=== PATIENT | male | born 1955 | race Caucasian/White ===

== ENCOUNTER 2021-08-02 10:04 | Observation (INO) | payer MEDICARE, BC ==
[2021-08-02 10:29] LABS: Glucose,Whole Blood 118 mg/dL (75-99)
[2021-08-02] MEDS ORDERED: SODIUM CHLORIDE 0.9% 500 ML 500 ML IV STA (10:41)
--- NOTE | 2021-08-02 10:43 | ED ---
General Adult HPI - General Chief complaint: Syncope Stated complaint: syncope, head injury Time Seen by Provider: 08/02/21 10:11 Source: patient, family, RN notes reviewed Mode of arrival: ambulatory Limitations: no limitations - History of Present Illness Initial comments: Patient is a pleasant 66-year-old male presenting to the emergency department w ith syncopal episode. Patient was sitting taken his coffee when he felt a little bit lightheaded and suddenly passed out. Patient was partially caught by family however did reportedly strike the back of his head. Patient complains of minimal discomfort in that area. At this time patient has minimal nausea and minimal lightheadedness, no other complaints. No chest pain or dyspnea. No back or abdominal pain. No neck pain. No confusion or speech problems or weakness. Patient does have history of syncopal episode approximately 25 years ago. Patient was evaluated at that time without any conclusion for the cause. - Related Data Home Medications Medication Instructions Recorded Confirmed Finasteride [Proscar] 5 mg PO DAILY 08/02/21 08/02/21 Fluticasone Nasal [place] [Flonase 1 spray EA NOSTRIL DAILY 08/02/21 08/02/21 Nasal [place]] Losartan Potassium 100 mg PO DAILY 08/02/21 08/02/21 Multivitamins, Thera [Multivitamin 1 tab PO DAILY 08/02/21 08/02/21 (formulary)] guaiFENesin [Mucinex] 600 mg PO DAILY 08/02/21 08/02/21 Allergies Allergy/AdvReac Type Severity Reaction Status Date / Time clarithromycin [From Biaxin] AdvReac Nausea & Verified 08/02/21 11:37 Vomiting Review of Systems ROS Statement: Those systems with pertinent positive or pertinent negative responses have been documented in the HPI. ROS Other: All systems not noted in ROS Statement are negative. Constitutional: Denies: fever Eyes: Denies: eye pain ENT: Denies: ear pain Respiratory: Denies: cough Cardiovascular: Denies: chest pain Endocrine: Denies: fatigue Gastrointestinal: Denies: abdominal pain Genitourinary: Denies: dysuria Musculoskeletal: Denies: back pain Skin: Denies: rash Neurological: Reports: as per HPI. Denies: weakness, confusion Past Medical History Past Medical History: Hypertension Additional Past Medical History / Comment(s): MRSA Left arm 2013 status post I&D 3 in the outpatient setting, MRSA neck 2010 with I&D at Dr. Epperson's office. History of Any Multi-Drug Resistant Organisms: MRSA Date of last positivie culture/infection: 04/18/2014 MDRO Source:: Left Elbow and Left Arm Past Surgical History: No Surgical Hx Reported Additional Past Surgical History / Comment(s): Repair of 3 metatarsal fractures in his foot many years ago. I&D of the neck abscess, I&D and aspiration of the left elbow abscess Past Anesthesia/Blood Transfusion Reactions: No Reported Reaction Past Psychological History: No Psychological Hx Reported Smoking Status: Never smoker Past Alcohol Use History: Occasional Past Drug Use History: None Reported - Past Family History Mother Family Medical History: Osteoarthritis (OA) General Exam Limitations: no limitations General appearance: alert, in no apparent distress Head exam: Present: other (Minimal tenderness posterior scalp) Eye exam: Present: normal appearance, PERRL, EOMI. Absent: nystagmus ENT exam: Present: normal oropharynx Neck exam: Present: normal inspection. Absent: tenderness Respiratory exam: Present: normal lung sounds bilaterally Cardiovascular Exam: Present: regular rate, normal rhythm Expanded Peripheral pulses: 2+: Radial (R), Radial (L), Posterior Tibialis (R), Posterior Tibialis (L) GI/Abdominal exam: Present: soft. Absent: tenderness Extremities exam: Present: normal inspection, full ROM. Absent: tenderness, pedal edema, calf tenderness Neurological exam: Present: alert, oriented X3, CN II-XII intact. Absent: motor sensory deficit Expanded Neurological exam: Present: protecting the airway Speech: Present: fluid speech Cranial nerves: EOM's Intact: Normal Sensory exam: Upper Extremity Light Touch: Normal, Lower Extremity Light Touch: Normal Motor strength exam: RUE: 5, LUE: 5, RLE: 5, LLE: 5 Eye Response: (4) open spontaneously Motor Response: (6) obeys commands Verbal Response: (5) oriented Psychiatric exam: Present: normal affect, normal mood Skin exam: Present: normal color Course Vital Signs 08/02/21 08/02/21 10:06 12:42 Temperature 98.4 F Pulse Rate 79 103 H Respiratory 18 20 Rate Blood Pressure 189/91 137/75 O2 Sat by Pulse 96 93 L Oximetry EKG Findings - EKG Comments: EKG Findings:: Sinus rhythm with a rate of 72. WA 188. QRS 98. QT 351. QTC 375. Normal axis. Q wave in lead III. No acute ST change. Medical Decision Making - Medical Decision Making Patient reevaluated. Patient and family updated. Dr. Luo has been paged for admission of his patient. Patient states he is having some minimal cramping of his right calf. Ultrasound be ordered. - Lab Data Result diagrams: 08/02/21 10:58 08/02/21 10:58 Lab Results 08/02/21 08/02/21 08/02/21 Range/Units 10:28 10:58 10:58 WBC 7.6 (3.8-10.6) k/uL RBC 5.04 (4.30-5.90) m/uL Hgb 15.9 (13.0-17.5) gm/dL Hct 45.9 (39.0-53.0) % MCV 91.1 (80.0-100.0) fL MCH 31.5 (25.0-35.0) pg MCHC 34.6 (31.0-37.0) g/dL RDW 13.0 (11.5-15.5) % Plt Count 164 (150-450) k/uL MPV 8.3 Neutrophils % 82 % Lymphocytes % 11 % Monocytes % 5 % Eosinophils % 1 % Basophils % 0 % Neutrophils # 6.2 (1.3-7.7) k/uL Lymphocytes # 0.9 L (1.0-4.8) k/uL Monocytes # 0.4 (0-1.0) k/uL Eosinophils # 0.1 (0-0.7) k/uL Basophils # 0.0 (0-0.2) k/uL PT 10.2 (9.0-12.0) sec INR 0.9 (<1.2) APTT 23.1 (22.0-30.0) sec D-Dimer 3.08 H (<0.60) mg/L FEU Sodium (137-145) mmol/L Potassium (3.5-5.1) mmol/L Chloride (98-107) mmol/L Carbon Dioxide (22-30) mmol/L Anion Gap mmol/L BUN (9-20) mg/dL Creatinine (0.66-1.25) mg/dL Est GFR (CKD-EPI)AfAm (>60 ml/min/1.73 sqM) Est GFR (CKD-EPI)NonAf (>60 ml/min/1.73 sqM) Glucose (74-99) mg/dL POC Glucose (mg/dL) 118 H (75-99) mg/dL POC Glu Marine Surveyor ID Cyndie Mercedes Calcium (8.4-10.2) mg/dL Magnesium (1.6-2.3) mg/dL Total Bilirubin (0.2-1.3) mg/dL AST (17-59) U/L ALT (4-49) U/L Alkaline Phosphatase (38-126) U/L Troponin I (0.000-0.034) ng/mL Total Protein (6.3-8.2) g/dL Albumin (3.5-5.0) g/dL Urine Color Urine Appearance (Clear) Urine pH (5.0-8.0) Ur Specific [place] (1.001-1.035) Urine Protein (Negative) Urine Glucose (UA) (Negative) Urine Ketones (Negative) Urine Blood (Negative) Urine Nitrite (Negative) Urine Bilirubin (Negative) Urine Urobilinogen (<2.0) mg/dL Ur Leukocyte Esterase (Negative) 08/02/21 08/02/21 08/02/21 Range/Units 10:58 10:58 12:59 WBC (3.8-10.6) k/uL RBC (4.30-5.90) m/uL Hgb (13.0-17.5) gm/dL Hct (39.0-53.0) % MCV (80.0-100.0) fL MCH (25.0-35.0) pg MCHC (31.0-37.0) g/dL RDW (11.5-15.5) % Plt Count (150-450) k/uL MPV Neutrophils % % Lymphocytes % % Monocytes % % Eosinophils % % Basophils % % Neutrophils # (1.3-7.7) k/uL Lymphocytes # (1.0-4.8) k/uL Monocytes # (0-1.0) k/uL Eosinophils # (0-0.7) k/uL Basophils # (0-0.2) k/uL PT (9.0-12.0) sec INR (<1.2) APTT (22.0-30.0) sec D-Dimer (<0.60) mg/L FEU Sodium 136 L (137-145) mmol/L Potassium 4.5 (3.5-5.1) mmol/L Chloride 104 (98-107) mmol/L Carbon Dioxide 25 (22-30) mmol/L Anion Gap 7 mmol/L BUN 14 (9-20) mg/dL Creatinine 0.69 (0.66-1.25) mg/dL Est GFR (CKD-EPI)AfAm >90 (>60 ml/min/1.73 sqM) Est GFR (CKD-EPI)NonAf >90 (>60 ml/min/1.73 sqM) Glucose 127 H (74-99) mg/dL POC Glucose (mg/dL) (75-99) mg/dL POC Glu Marine Surveyor ID Calcium 9.9 (8.4-10.2) mg/dL Magnesium 1.9 (1.6-2.3) mg/dL Total Bilirubin 1.0 (0.2-1.3) mg/dL AST 28 (17-59) U/L ALT 26 (4-49) U/L Alkaline Phosphatase 67 (38-126) U/L Troponin I <0.012 (0.000-0.034) ng/mL Total Protein 6.8 (6.3-8.2) g/dL Albumin 4.1 (3.5-5.0) g/dL Urine Color Light Yellow Urine Appearance Clear (Clear) Urine pH 8.0 (5.0-8.0) Ur Specific [place] >1.050 H (1.001-1.035) Urine Protein Negative (Negative) Urine Glucose (UA) Negative (Negative) Urine Ketones Negative (Negative) Urine Blood Negative (Negative) Urine Nitrite Negative (Negative) Urine Bilirubin Negative (Negative) Urine Urobilinogen <2.0 (<2.0) mg/dL Ur Leukocyte Esterase Negative (Negative) - Radiology Data Radiology results: report reviewed (CT of the brain reveals no acute abnormality. CT angios the chest is suboptimal study. No major or central pulmonary embolism.), image reviewed (Two-view chest x-ray shows elevated right hemidiaphragm. Associated atelectasis or early infiltrate.) Disposition Clinical Impression: Syncope Disposition: ADMITTED IP TO THIS HOSP Is patient prescribed a controlled substance at d/c from ED?: No Referrals: Papito Luo MD [Primary Care Provider] - 1-2 days Decision Time: 13:43
[2021-08-02 11:10] LABS: Basophils % (A) 0 %; Eosinophils # (A) 0.1 k/uL (0-0.7); Eosinophils % (A) 1 %; HCT 45.9 % (39.0-53.0); HGB 15.9 gm/dL (13.0-17.5); Lymphocytes # (A) 0.9 k/uL (1.0-4.8); Lymphocytes % (A) 11 %; MCH 31.5 pg (25.0-35.0); MCHC 34.6 g/dL (31.0-37.0); MCV 91.1 fL (80.0-100.0); Mean Platelet Volume 8.3; Monocytes # (A) 0.4 k/uL (0-1.0); Monocytes % (A) 5 %; Neutrophils # (A) 6.2 k/uL (1.3-7.7); Neutrophils % (A) 82 %; Platelet Count 164 k/uL (150-450); RBC 5.04 m/uL (4.30-5.90); WBC 7.6 k/uL (3.8-10.6)
[2021-08-02 11:24] LABS: ALT 26 U/L (4-49); AST 28 U/L (17-59); African American GFR (CKD) >90 (>60 ml/min/1.73 sqM); Albumin 4.1 g/dL (3.5-5.0); Alkaline Phosphatase 67 U/L (38-126); Anion Gap 7 mmol/L; Blood Urea Nitrogen 14 mg/dL (9-20); Calcium 9.9 mg/dL (8.4-10.2); Carbon Dioxide 25 mmol/L (22-30); Chloride 104 mmol/L (98-107); Glucose 127 mg/dL (74-99); Magnesium 1.9 mg/dL (1.6-2.3); Non-African American GFR(CKD) >90 (>60 ml/min/1.73 sqM); Potassium 4.5 mmol/L (3.5-5.1); Sodium 136 mmol/L (137-145); Total Protein 6.8 g/dL (6.3-8.2)
[2021-08-02 11:27] LABS: INR 0.9 (<1.2); Partial Thromboplastin Time 23.1 sec (22.0-30.0); Prothrombin Time 10.2 sec (9.0-12.0)
--- NOTE | 2021-08-02 11:27 | XR ---
EXAMINATION TYPE: XR chest 2V DATE OF EXAM: 08/02/2021 COMPARISON: NONE TECHNIQUE: PA and lateral views submitted. HISTORY: Syncope FINDINGS: Elevated right hemidiaphragm with limited inspiration. Heart is enlarged. Subsegmental infiltrate rig ht lung base. Coarsened interstitium with no pneumothorax. Arthropathy of the shoulders. Hypertrophic change of the spine. IMPRESSION: 1. Elevated right hemidiaphragm with right basilar atelectasis or early pneumonia correlate clinicall y.
--- NOTE | 2021-08-02 11:40 | CT ---
EXAMINATION TYPE: CT brain wo con DATE OF EXAM: 08/02/2021 COMPARISON: None available HISTORY: Syncope, head injury CT DLP: 1137.4 mGycm Automated exposure control for dose reduction was used. TECHNIQUE: CT scan of the brain is performed without IV contrast administration. FINDINGS: Suspected bilateral cerebral white matter chronic microvascular ischemic changes. No acute intracrani al hemorrhage. No gross acute cortical infarct. No midline shift, herniation or ventriculectomy. Unremarkable huynh-white matter differentiation, basal cisterns, sella and CP angles. No gross space-o ccupying lesion, vasogenic edema or mass effect. Unremarkable orbits. Right small frontal scalp calcification. Posterior midline scalp lipoma measurin g 2.1 cm. Small polyps/retention cysts within the left maxillary sinus and right sphenoid sinus arslan rtment. Unremarkable calvarial bones. IMPRESSION: No acute intracranial posttraumatic sequela or acute calvarial bone fracture. Incidental findings as described above.
--- NOTE | 2021-08-02 12:31 | CT ---
EXAMINATION TYPE: CT angio chest DATE OF EXAM: 08/02/2021 COMPARISON: None available HISTORY: Elevated D-dimer CT DLP: 647.7 mGy.cm. Automated Exposure Control for Dose Reduction was Utilized. TECHNIQUE AND CONTRAST: CTA scan of the thorax is performed with IV Contrast, patient injected with 100 mL of Isovue 370, [facility] angiogram protocol. MIP Images are created on CT scanner and reviewed. FINDINGS: Suboptimal CT pulmonary angiogram with the timing of a thoracic aortogram rather than pulmonary angio gram. Motion artifacts are also seen, mainly in the left lower lobe. With this limitation, no definit e filling defect is seen within the pulmonary trunk, main pulmonary arteries, lobar and proximal segm ental arteries. Distal segmental and subsegmental arteries are suboptimally assessed. Small pulmonary embolism at that level cannot be excluded. The pulmonary trunk measures up to 3.5 cm which may suggest pulmonary hypertension. No gross cardiome puja. Atherosclerotic changes of the thoracic aorta. The ascending aorta measures 4.4 cm. Arterial an d coronary atherosclerotic calcifications. Right basal linear pulmonary atelectasis. Elevated right hemidiaphragm. Grossly unremarkable lungs ot herwise. Patent central airways. No pleural or pericardial effusion. No pathologically enlarged lymph nodes in the chest. Questionable hepatic steatosis with bulky liver. Degenerative changes of the low er thoracic spine. No aggressive bone lesion. IMPRESSION: With the limitation of the suboptimal CT pulmonary angiogram, no major or central pulmonary embolism. Small peripheral pulmonary embolism cannot be excluded mainly in the left lower lobe. Other incident al findings as described above.
[2021-08-02 13:18] LABS: Appearance,Urine Clear (Clear); Bilirubin,Urine Negative (Negative); Blood,Urine Negative (Negative); Color,Urine Light Yellow; Glucose,Urine (UA) Negative (Negative); Ketones,Urine Negative (Negative); Leukocyte Esterase,Urine Negative (Negative); Nitrite,Urine Negative (Negative); Protein,Urine Negative (Negative); Urobilinogen,Urine <2.0 mg/dL (<2.0)
[2021-08-02 13:20] LABS: Specific Gravity,Urine >1.050 (1.001-1.035)
[2021-08-02] MEDS ORDERED: NALOXONE 0.4 MG/ML 1 ML VIAL IV PRN (13:44)
[2021-08-02] MEDS ORDERED: ACETAMINOPHEN TAB 325 MG TAB PO PRN (13:44)
--- NOTE | 2021-08-02 15:26 | US ---
EXAMINATION TYPE: US venous doppler duplex LE DATE OF EXAM: 08/02/2021 2:51 PM COMPARISON: None available CLINICAL HISTORY: syncope, d-dimer. SIDE PERFORMED: Bilateral TECHNIQUE: The lower extremity deep venous system is examined utilizing real time linear array sonog arley with graded compression, doppler sonography and color-flow sonography. VESSELS IMAGED: Common Femoral Vein Deep Femoral Vein Greater Saphenous Vein * Femoral Vein Popliteal Vein Small Saphenous Vein * Proximal Calf Veins (* superficial vessels) Right Leg: Negative for DVT Left Leg: Negative for DVT IMPRESSION: Grayscale, color doppler, spectral doppler imaging performed of the deep veins of the lo wer extremities. There is normal flow, compressibility, vascular waveforms. No evidence of DVT of t he lower extremities.
--- NOTE | 2021-08-02 16:48 | US ---
EXAMINATION TYPE: US carotid duplex BILAT DATE OF EXAM: 08/02/2021 COMPARISON: NONE CLINICAL HISTORY: syncope. EXAM MEASUREMENTS: RIGHT: Peak Systolic Velocity (PSV) cm/sec ----- Right CCA: 61.4 ----- Right ICA: 89.8 ----- Right ECA: 112.1 ICA/CCA ratio: 1.5 RIGHT: End Diastole cm/sec ----- Right CCA: 15.3 ----- Right ICA: 34.8 ----- Right ECA: 16.3 LEFT: Peak Systolic Velocity (PSV) cm/sec ----- Left CCA: 74.5 ----- Left ICA: 77.3 ----- Left ECA: 63.9 ICA/CCA ratio: 1.0 LEFT: End Diastole cm/sec ----- Left CCA: 19.1 ----- Left ICA: 27.1 ----- Left ECA: 8.3 VERTEBRALS (direction of flow): Right Vertebral: Antegrade Left Vertebral: Antegrade Rhythm: Normal Mild atherosclerotic changes with no significant velocity elevations. IMPRESSION: Less than 50% stenosis of the bilateral carotid systems. Criteria for Assigning % of Stenosis / Diameter reduction (Estimation based on the indirect measurements of the internal carotid artery velocities (ICA PSV). 1. Normal (no stenosis)=ICA PSV < 125 cm/s: ratio < 2.0: ICA EDV<40 cm/s. 2. Less than 50% stenosis=ICA PSV < 125 cm/s: ratio < 2.0: ICA EDV<40 cm/s. 3. 50 to 69% stenosis=ICA PSV of 125 to 230 cm/s: ration 2.0 ? 4.0: ICA EDV 40-100 cm/s. 4. Greater than 70% stenosis to near occlusion= ICA PSV > 230 cm/s: ratio > 4.0: ICA EDV > 100 cm/s. 5. Near occlusion= ICA PSV velocities may be low or undetectable: variable ratio and ICA EDV. 6. Total occlusion=unable to detect flow.
--- NOTE | 2021-08-02 17:38 | ECHOF ---
Referral Reason:syncope MEASUREMENTS -------- HEIGHT: 172.7 cm WEIGHT: 104.3 kg BP: RVIDd: 2.6 cm (< 3.3) IVSd: 1.2 cm (0.6 - 1.1) LVIDd: 4.6 cm (3.9 - 5.3) LVPWd: 1.2 cm (0.6 - 1.1) IVSs: 2.0 cm LVIDs: 3.8 cm LVPWs: 1.6 cm LAESV Index (A-L): 27.18 ml/m Ao Diam: 3.8 cm (2.0 - 3.7) AV Cusp: 2.1 cm (1.5 - 2.6) MV E Dontae: 0.51 m/s MV DecT: 247 ms MV A Dontae: 0.95 m/s MV E/A Ratio: 0.54 RAP: 5.00 mmHg RVSP: 10.74 mmHg FINDINGS -------- Sinus rhythm. This was a technically adequate study. The left ventricular size is normal. There is mild concentric left ventricular hypertrophy. Overa ll left ventricular systolic function is low-normal with, an EF between 50 - 55 %. The right ventricle is normal in size. The left atrial size is normal. The right atrial size is normal. The aortic valve is trileaflet and appears structurally normal. There is mild aortic valve sclerosi s. Ascending Aortic Root is dilated and measures 3.9cm. Mild mitral regurgitation is present. Mild tricuspid regurgitation present. Right ventricular systolic pressure is normal at < 35 mmHg. There is no pulmonic regurgitation present. There is no pericardial effusion. CONCLUSIONS -------- 1. The left ventricular size is normal. 2. There is mild concentric left ventricular hypertrophy. 3. Overall left ventricular systolic function is low-normal with, an EF between 50 - 55 %. 4. The right ventricle is normal in size. 5. The left atrial size is normal. 6. The right atrial size is normal. 7. The aortic valve is trileaflet and appears structurally normal. 8. There is mild aortic valve sclerosis. 9. Ascending Aortic Root is dilated and measures 3.9cm. 10. Mild mitral regurgitation is present. 11. Mild tricuspid regurgitation present. 12. There is no pericardial effusion. DRYWALL SANDER: Lucy Domínguez RDCS
--- NOTE | 2021-08-03 02:32 | P.HPIM ---
History of Present Illness This is a pleasant 66 years old male with past medical history of hypertension. He is patient of Dr. Luo He presents because of passing out, he was sitting on the breakfast table when he felt dizzy and passed out for about 35-40 seconds per at bedside with no associated seizure-like activity, no urine or bowel incontinence, no tongue biting, patient woke up after a few seconds and his back to his baseline. He hit his head on the back on his fallen as well as he has some pain and tailbone however he denies any other symptoms and he thinks he is back to his baseline. No chest pain or dyspnea or coughing. No diarrhea or vomiting. No abdominal pain or dysuria or change in frequency. No fever He denies smoking, alcohol or illicit tracts Patient saturation is 93-94% on room air, breathing rate 18-20, rest of it does look stable and patient is afebrile. Labs reviewed and CBC is unremarkable. INR 0.9, d-dimer is elevated 3.0 Sodium 136, rest of BMP and liver enzymes are unremarkable. Serial troponin are negative less than 0.0.2 3. UA is no suspicious of infection CT of the brain: No acute process. CTA of the chest no pulmonary embolism, ultrasound of the leg with venous Doppler is negative for DVT as well as both legs Carotid duplex less than 50% stenosis Echocardiogram showed ejection fraction 50-55 person. Ascending aortic root is dilated measuring 3.9 cm In the emergency room patient received IV fluid with normal saline. Pulmonary and cardiology team were consulted Past Medical History Past Medical History: Hypertension Additional Past Medical History / Comment(s): MRSA Left arm 2013 status post I&D 3 in the outpatient setting, MRSA neck 2010 with I&D at Dr. Epperson's office. History of Any Multi-Drug Resistant Organisms: MRSA Date of last positivie culture/infection: 04/18/2014 MDRO Source:: Left Elbow and Left Arm Past Surgical History: No Surgical Hx Reported Additional Past Surgical History / Comment(s): Repair of 3 metatarsal fractures in his foot many years ago. I&D of the neck abscess, I&D and aspiration of the left elbow abscess Past Anesthesia/Blood Transfusion Reactions: No Reported Reaction Past Psychological History: No Psychological Hx Reported Smoking Status: Never smoker Past Alcohol Use History: Occasional Past Drug Use History: None Reported - Past Family History Mother Family Medical History: Osteoarthritis (OA) Medications and Allergies Home Medications Medication Instructions Recorded Confirmed Type Finasteride [Proscar] 5 mg PO DAILY 08/02/21 08/02/21 History Fluticasone Nasal [place] [Flonase 1 spray EA NOSTRIL DAILY 08/02/21 08/02/21 History Nasal [place]] Losartan Potassium 100 mg PO DAILY 08/02/21 08/02/21 History Multivitamins, Thera [Multivitamin 1 tab PO DAILY 08/02/21 08/02/21 History (formulary)] guaiFENesin [Mucinex] 600 mg PO DAILY 08/02/21 08/02/21 History Allergies Allergy/AdvReac Type Severity Reaction Status Date / Time clarithromycin [From Biaxin] AdvReac Nausea & Verified 08/02/21 11:37 Vomiting Physical Exam Vitals: Vital Signs Temp Pulse Resp BP Pulse Ox 08/02/21 12:42 103 H 20 137/75 93 L 08/02/21 10:06 98.4 F 79 18 189/91 96 Intake and Output 08/01/21 08/02/21 08/02/21 22:59 06:59 14:59 Other: Weight 104.326 kg Results CBC & Chem 7: 08/02/21 10:58 08/02/21 10:58 Labs: Abnormal Lab Results - Last 24 Hours (Table) 08/02/21 08/02/21 08/02/21 Range/Units 10:28 10:58 10:58 Lymphocytes # 0.9 L (1.0-4.8) k/uL D-Dimer 3.08 H (<0.60) mg/L FEU Sodium (137-145) mmol/L Glucose (74-99) mg/dL POC Glucose (mg/dL) 118 H (75-99) mg/dL Ur Specific [place] (1.001-1.035) 08/02/21 08/02/21 Range/Units 10:58 12:59 Lymphocytes # (1.0-4.8) k/uL D-Dimer (<0.60) mg/L FEU Sodium 136 L (137-145) mmol/L Glucose 127 H (74-99) mg/dL POC Glucose (mg/dL) (75-99) mg/dL Ur Specific [place] >1.050 H (1.001-1.035) Assessment and Plan Assessment: Acute syncope Hypertension Elevated d-dimer with negative pulmonary embolism and negative DVT of the legs Plan: This is a pleasant 66 years old male who presents with syncope Continue with neuro check Cartilage pulmonary consult Labs and medication were reviewed.. Continue same treatment. Continue with symptomatic treatment. Resume home medication. Monitor lytes and vitals. DVT and GI prophylaxis. Further recommendations as per clinical course of the patient DVT prophylaxis: Subcutaneous heparin GI Prophylaxis: Pepcid Dr. Luo team will resume the care of the patient tomorrow
[2021-08-03 07:41] VITALS: BP 144/79; PULSE 75; RESP 16; TEMP 98.1
[2021-08-03] MEDS ORDERED: LOSARTAN 50 MG TAB PO SCH (09:00)
[2021-08-03] MEDS ORDERED: FAMOTIDINE 20 MG/2 ML VIAL IV SCH (09:00)
[2021-08-03] MEDS ORDERED: FINASTERIDE 5 MG TAB PO SCH (09:00)
[2021-08-03] MEDS ORDERED: HEPARIN SODIUM,PORCINE/PF 5,000 UNIT/0.5 ML SYRINGE SQ SCH (09:00)
[2021-08-03] MEDS ORDERED: MULTIVITAMINS, THERA 1 EACH TAB PO SCH (09:00)
--- NOTE | 2021-08-03 12:23 | P.DS ---
Providers Date of admission: 08/02/21 13:44 Expected date of discharge: 08/03/21 Attending physician: Papito Luo Consults: 08/02/21 13:44 Consult Physician Routine Consulting Provider: Devang Villarreal Consult Reason/Comments: syncope, review ct Do you want consulting provider notified?: Yes Consult Physician Routine Consulting Provider: Catarino Cantu Consult Reason/Comments: syncope Do you want consulting provider notified?: Yes Primary care physician: Papito Luo Hospital Course: Patient is a pleasant 66-year-old male, that presented to the emergency room with a syncopal episode. Patient states he took a sip of coffee and on workup on the floor. Extensive diagnostic workup has been completed. Patient will be discharged home with event monitor and will follow-up with Dr. Duque in the office. Patient has a history of hypertension, Norvasc was added to medication regimen. Patient denies any symptoms since admission. Patient is feeling well and states he is ready to go home. Patient was educated to abstain from driving until cleared by cardiology. Patient will be discharged after event monitor is applied. Assessment: Syncope hypertension elevated D-dimer, negative for PE and DVT mild hyponatremia history of MRSA infection. Health Concerns: Hypertension Pertinent Studies: Chest xray- elevated right ted diaphragm with right basilar atelectasis. Brain CT- no acute intracranial posttraumatic sequela or acute fracture Chest CTA- no major or central pulmonary embolism Ultrasound venous Doppler lower extremity-negative for DVT bilaterally Carotid ultrasound- less than 50% stenosis of bilateral carotid systems Echocardiogram- ejection fraction between 50-55%, mild concentric left ventricular hypertrophy Procedures: Discharged with event monitor Patient Condition at Discharge: Fair Plan - Discharge Summary Discharge Rx Participant: No New Discharge Prescriptions: New amLODIPine [Norvasc] 2.5 mg PO HS 30 Days #30 tab Continue Multivitamins, Thera [Multivitamin (formulary)] 1 tab PO DAILY Finasteride [Proscar] 5 mg PO DAILY Losartan Potassium 100 mg PO DAILY Fluticasone Nasal [place] [Flonase Nasal [place]] 1 spray EA NOSTRIL DAILY guaiFENesin [Mucinex] 600 mg PO DAILY Discharge Medication List Finasteride [Proscar] 5 mg PO DAILY 08/02/21 [History] Fluticasone Nasal [place] [Flonase Nasal [place]] 1 spray EA NOSTRIL DAILY 08/02/21 [History] Losartan Potassium 100 mg PO DAILY 08/02/21 [History] Multivitamins, Thera [Multivitamin (formulary)] 1 tab PO DAILY 08/02/21 [Histor y] guaiFENesin [Mucinex] 600 mg PO DAILY 08/02/21 [History] amLODIPine [Norvasc] 2.5 mg PO HS 30 Days #30 tab 08/03/21 [Rx] Follow up Appointment(s)/Referral(s): Papito Luo MD [Primary Care Provider] - 1-2 days Surjit Duque MD [STAFF PHYSICIAN] - 2 Weeks (Office will call patient with date and time of appointment. Event Monitor 14 days ) Patient Instructions/Handouts: Syncope (DC) Activity/Diet/Wound Care/Special Instructions: event monitor [address] until cleared by cardiology Discharge Disposition: HOME SELF-CARE
--- NOTE | 2021-08-03 13:16 | CONS ---
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 He had something to eat, then he was sitting at the counter with coffee. He then felt a little dizzy, took his glasses off and then had an episode of what seems to be a near-syncopal spell. Then he woke up and drove to the hospital. His actually brought him to the hospital. This episode occurred about 20 years ago and he had extensive workup that was negative. He has hypertension under good control. He sees Dr. Papito Luo in the outpatient setting. At the time of my evaluation, he is asymptomatic. His orthostatic changes are unremarkable. He takes his losartan regularly. Blood pressure was slightly high yesterday. At the time of my evaluation, he is resting comfortably. EKG is unremarkable. Troponins are normal and clinical review of rhythm strips was also within normal limits. PAST MEDICAL HISTORY: 1. Remote history of syncope. 2. Hypertension. 3. History of benign prostatic hypertrophy. MEDICATIONS: Medications include losartan and Proscar. PHYSICAL EXAMINATION: On examination, blood pressure is 140/80, pulse rate is 70 per minute, regular. There are no orthostatic changes. HEENT unremarkable. Fundus was not examined by me. Neck is supple. No JVD. I do not hear a carotid bruit. There is no thyromegaly. Heart exam reveals S1, S2 heard normally in all areas without a rub, murmur or gallop. Lungs are clear. Abdomen is soft, nontender. Lower extremities reveal normal pulses. No edema. Central nervous system is normal. EKG revealed a sinus mechanism with nondiagnostic inferior Q-waves and no acute changes. Isolated PVC was noted. Lab data suggest that D-dimer is elevated. Troponins are all within normal limits. CT angiogram was performed and there is no evidence to suggest any pulmonary embolism. Echo revealed fairly well preserved systolic function. Carotid Doppler and venous Doppler were unremarkable. IMPRESSION: 1. Probable vasovagal episode with unclear trigger. 2. Hypertension. 3. No evidence to suggest any coronary artery disease. 4. Elevated D-dimer of unclear significance with a negative CT angio and venous Doppler. RECOMMENDATIONS: I am recommending that we optimize his blood pressure control, increase activity, and send him home with a 2-week event monitor followed by office visit with me. I explained to the patient that he should stay well hydrated and also gave him some situational modification in terms of trying to sit down or lie down when these episodes happen. We will place him on amlodipine 5 mg at bedtime, losartan 100 mg in the morning. Will increase oral fluids and he can be discharged today after event monitor. Thank you very much for the consult. KARIE / CARLA: [phone] /
[2021-08-03] MEDS ORDERED: FAMOTIDINE 20 MG TAB PO SCH (21:00)
[2021-08-03] MEDS ORDERED: amLODIPine 2.5 MG TAB PO SCH (21:00)
== END 2021-08-03 13:48 | disposition home or self-care (01) ==
LOC: EC 10:04 → 6NMEDSUR 13:44
PROVIDERS: ADMIT Family Medicine; ATTEND Family Medicine
DX: R55 Syncope and collapse (principal); R79.89 Other specified abnormal findings of blood chemistry; I11.9 Hypertensive heart disease without heart failure; E87.1 Hypo-osmolality and hyponatremia; I08.3 Combined rheumatic disorders of mitral, aortic and tricuspid valves; I65.23 Occlusion and stenosis of bilateral carotid arteries; J98.6 Disorders of diaphragm; N40.0 Benign prostatic hyperplasia without lower urinary tract symptoms; J98.11 Atelectasis; R42 Dizziness and giddiness; Z79.899 Other long term (current) drug therapy; Z88.1 Allergy status to other antibiotic agents; Z86.14 Personal history of Methicillin resistant Staphylococcus aureus infection; Z98.890 Other specified postprocedural states; Z82.61 Family history of arthritis
CPT/HCPCS: 96374; 99285; 36415; 93005; 93306; 93270; 85379; 80053; 83735; 84484; 85025; 85610; 85730; 81003; 71046; 93880; 93970; 70450; 71275; G0378 ×2; S0138; Q9967

== ENCOUNTER 2022-01-12 20:14 | Emergency (ER) | payer MEDICARE, BC ==
[2022-01-12 20:24] VITALS: RESP 16; TEMP 98
--- NOTE | 2022-01-12 20:49 | ED ---
Lower Extremity Injury HPI - General Chief Complaint: Fall Stated Complaint: Knee pain Time Seen by Provider: 01/12/22 20:34 Source: patient, RN notes reviewed Mode of arrival: wheelchair Limitations: no limitations - History of Present Illness Initial Comments: This is a pleasant 66-year-old male who presents to emergency department stating he has had left knee pain since the afternoon. Patient was in [place] at [employer] was walking to the elevator. In the process walking his left knee buckled and he has aching and sharp pain to the medial aspect of the knee which is sensitive by movement, attempted walking, and palpation. Denied any distal or proximal injuries. No distal paresthesias. Not that the patient did not fall nor did he sustain any other injuries. There is no head or neck injury. No headache, no fever or chills, no changes in vision or hearing, no sore throat or difficulty with speech, no neck pain, no chest pain or shortness of breath, no abdominal pain, no nausea or vomiting, no changes in urination or bowel movements, no numbness or tingling, no skin rashes or lesions. Past medical, surgical, social, and family history reviewed. MD Complaint: knee injury - Related Data Home Medications Medication Instructions Recorded Confirmed Finasteride [Proscar] 5 mg PO DAILY 08/02/21 08/02/21 Fluticasone Nasal [place] [Flonase 1 spray EA NOSTRIL DAILY 08/02/21 08/02/21 Nasal [place]] Losartan Potassium 100 mg PO DAILY 08/02/21 08/02/21 Multivitamins, Thera [Multivitamin 1 tab PO DAILY 08/02/21 08/02/21 (formulary)] guaiFENesin [Mucinex] 600 mg PO DAILY 08/02/21 08/02/21 Previous Rx's Medication Instructions Recorded amLODIPine [Norvasc] 2.5 mg PO HS 30 Days #30 tab 08/03/21 Acetaminophen Tab [Tylenol Tab] 500 mg PO Q6H PRN #24 tablet 01/12/22 Naproxen [Naprosyn] 375 mg PO Q12HR PRN #20 tablet 01/12/22 Allergies Allergy/AdvReac Type Severity Reaction Status Date / Time clarithromycin [From Biaxin] AdvReac Nausea & Verified 01/12/22 20:21 Vomiting Review of Systems ROS Statement: Those systems with pertinent positive or pertinent negative responses have been documented in the HPI. ROS Other: All systems not noted in ROS Statement are negative. Past Medical History Past Medical History: Hypertension Additional Past Medical History / Comment(s): MRSA Left arm 2013 status post I&D 3 in the outpatient setting, MRSA neck 2010 with I&D at Dr. Epperson's office. History of Any Multi-Drug Resistant Organisms: MRSA Date of last positivie culture/infection: 04/18/2014 MDRO Source:: Left Elbow and Left Arm Past Surgical History: No Surgical Hx Reported Additional Past Surgical History / Comment(s): Repair of 3 metatarsal fractures in his foot many years ago. I&D of the neck abscess, I&D and aspiration of the left elbow abscess. Skin cancer removal Past Anesthesia/Blood Transfusion Reactions: No Reported Reaction Past Psychological History: No Psychological Hx Reported Smoking Status: Never smoker Past Alcohol Use History: Occasional Past Drug Use History: None Reported - Past Family History Mother Family Medical History: Osteoarthritis (OA) General Exam - General Exam Comments Initial Comments: This is a healthy-appearing 66-year-old male in no significant distress. Limitations: no limitations General appearance: alert, in no apparent distress Head exam: Present: atraumatic, normocephalic, normal inspection Eye exam: Present: normal appearance, PERRL, EOMI. Absent: scleral icterus, conjunctival injection, periorbital swelling ENT exam: Present: normal exam, mucous membranes moist Neck exam: Present: normal inspection. Absent: tenderness, meningismus, lymphadenopathy Respiratory exam: Present: normal lung sounds bilaterally. Absent: respiratory distress, wheezes, rales, rhonchi, stridor Cardiovascular Exam: Present: regular rate, normal rhythm, normal heart sounds. Absent: systolic murmur, diastolic murmur, rubs, gallop, clicks GI/Abdominal exam: Present: soft, normal bowel sounds. Absent: distended, tenderness, guarding, rebound, rigid Left Upper Leg exam: Present: normal inspection. Absent: tenderness Knee exam: Present: tenderness, swelling, effusion (Medial). Absent: full ROM, abrasion, laceration, ecchymosis, deformity, crepitus, dislocation, erythema Lower Leg exam: Present: normal inspection. Absent: tenderness Ankle exam: Present: normal inspection Foot/Toe exam: Present: normal inspection Neurovascular tendon exam: Present: no vascular compromise. Absent: pulse deficit, abnormal cap refill, motor deficit, sensory deficit, pallor Back exam: Present: normal inspection Neurological exam: Present: alert, oriented X3, CN II-XII intact Psychiatric exam: Present: normal affect, normal mood Skin exam: Present: warm, dry, intact, normal color. Absent: rash Course Vital Signs 01/12/22 01/12/22 20:22 21:46 Temperature 98 F Pulse Rate 88 90 Respiratory 16 16 Rate Blood Pressure 148/87 149/89 O2 Sat by Pulse 98 97 Oximetry Procedures - Orthopedic Splinting/Casting Injury #1 Side: left Lower Extremity Immobilizer: knee immobilizer Additional Comments: Distal neurovascular status intact Medical Decision Making - Medical Decision Making Shows isolated injury to left knee. Possible internal derangement versus bony pathology. Plain film x-rays ordered. Patient was told to return to the ER for any signs or symptoms worsen. Told to return immediately if any other problems arise. All questions answered. Treatment plan discussed. Patient in agreement Every effort has been made to ensure accuracy of this dictation. However, due to the limitations of electronic medical records and dictation devices, errors in charting still occur. No acute findings on x-ray. Did discuss the possibility of ligamentous derangement or meniscus derangement with the patient. Discussed the possibility of occult fracture. Minimal localized applied. Patient given 1 dose and [place] here. [facility]. We'll have him call in the morning for follow-up appointment. RICE therapy discussed. Patient was told to return to the ER for any signs or symptoms worsen. Told to return immediately if any other problems arise. All questions answered. Treatment plan discussed. Patient in agreement Every effort has been made to ensure accuracy of this dictation. However, due to the limitations of electronic medical records and dictation devices, errors in charting still occur. Electrical Maintenance Engineer Dr. Pickens - Radiology Data Radiology results: report reviewed, image reviewed Disposition Clinical Impression: Internal derangement of left knee Disposition: HOME SELF-CARE Condition: Good Instructions (If sedation given, give patient instructions): Knee Sprain (ED), Knee Immobilizer (ED) Additional Instructions: Call the morning to set up an appointment with [facility]. Follow-up with your regular physician as directed. Return to the ER immediately if any symptoms worsen, new symptoms arise, or any other problems develop. Elevation, ice 20 minutes on and off for times daily, wear the knee immobilizer as directed. Is patient prescribed a controlled substance at d/c from ED?: No Referrals: Ramin Menjivar MD [STAFF PHYSICIAN] - 01/14/22 Time of Disposition: 21:48
--- NOTE | 2022-01-12 21:32 | XR ---
EXAMINATION TYPE: XR knee 4V LT DATE OF EXAM: 01/12/2022 COMPARISON: NONE HISTORY: Knee pain TECHNIQUE: 5 views FINDINGS: There is no evidence of fracture nor dislocation. Joint spaces are fairly normal. No sign o f knee joint effusion. IMPRESSION: Negative left knee exam. No fracture.
[2022-01-12] MEDS ORDERED: HYDROcodone/APAP 5-325MG 1 EACH TAB PO STA (21:34)
[2022-01-12 21:47] VITALS: BP 149/89; PULSE 90
== END 2022-01-12 22:30 | disposition home or self-care (01) ==
LOC: EC 20:14
DX: M23.92 Unspecified internal derangement of left knee (principal); I10 Essential (primary) hypertension; Z88.1 Allergy status to other antibiotic agents
CPT/HCPCS: 73564; 29505; 99284; L1830

== ENCOUNTER 2022-03-20 11:10 | Emergency (ER) | payer MEDICARE, BC ==
[2022-03-20 11:14] VITALS: TEMP 97.8
--- NOTE | 2022-03-20 12:05 | US ---
EXAMINATION TYPE: US venous doppler duplex LE LT DATE OF EXAM: 03/20/2022 11:37 AM COMPARISON: US bilateral 2021 CLINICAL HISTORY: pain. Left leg pain and swelling following recent knee surgery SIDE PERFORMED: Left TECHNIQUE: The lower extremity deep venous system is examined utilizing real time linear array sonog arley with graded compression, doppler sonography and color-flow sonography. VESSELS IMAGED: Common Femoral Vein Deep Femoral Vein Greater Saphenous Vein * Femoral Vein Popliteal Vein Small Saphenous Vein * Proximal Calf Veins (* superficial vessels) Left Leg: Appears negative for DVT Grayscale, color doppler, spectral doppler imaging performed of the deep veins of the left lower extr emity. There is normal flow, compressibility, vascular waveforms. IMPRESSION: No ultrasound evidence for acute DVT in the left lower extremity. No significant change from prior.
--- NOTE | 2022-03-20 12:41 | ED ---
Extremity Problem HPI - General Chief complaint: Extremity Problem,Nontraumatic Stated complaint: post op lt knee swelling Time Seen by Provider: 03/20/22 11:46 Source: patient, RN notes reviewed Mode of arrival: ambulatory Limitations: no limitations - History of Present Illness Initial comments: 66-year-old male presents emergency Department chief complaint left leg swelling, bruising. Patient states he is 10 days status post meniscus repair. Patient states that he does not have any pain within the knee states symptoms, upper thigh region. Patient states bruising this spread throughout his leg. Denies any redness no fevers or chills. Patient states pain is greatly improved prior to surgery. - Related Data Home Medications Medication Instructions Recorded Confirmed Finasteride [Proscar] 5 mg PO DAILY 08/02/21 08/02/21 Fluticasone Nasal [place] [Flonase 1 spray EA NOSTRIL DAILY 08/02/21 08/02/21 Nasal [place]] Losartan Potassium 100 mg PO DAILY 08/02/21 08/02/21 Multivitamins, Thera [Multivitamin 1 tab PO DAILY 08/02/21 08/02/21 (formulary)] guaiFENesin [Mucinex] 600 mg PO DAILY 08/02/21 08/02/21 Previous Rx's Medication Instructions Recorded amLODIPine [Norvasc] 2.5 mg PO HS 30 Days #30 tab 08/03/21 Acetaminophen Tab [Tylenol Tab] 500 mg PO Q6H PRN #24 tablet 01/12/22 Naproxen [Naprosyn] 375 mg PO Q12HR PRN #20 tablet 01/12/22 Allergies Allergy/AdvReac Type Severity Reaction Status Date / Time clarithromycin [From Biaxin] AdvReac Nausea & Verified 03/20/22 11:14 Vomiting Review of Systems ROS Statement: Those systems with pertinent positive or pertinent negative responses have been documented in the HPI. ROS Other: All systems not noted in ROS Statement are negative. Past Medical History Past Medical History: Hypertension Additional Past Medical History / Comment(s): MRSA Left arm 2013 status post I&D 3 in the outpatient setting, MRSA neck 2010 with I&D at Dr. Epperson's office. History of Any Multi-Drug Resistant Organisms: MRSA Date of last positivie culture/infection: 04/18/2014 MDRO Source:: Left Elbow and Left Arm Past Surgical History: No Surgical Hx Reported Additional Past Surgical History / Comment(s): Repair of 3 metatarsal fractures in his foot many years ago. I&D of the neck abscess, I&D and aspiration of the left elbow abscess. Skin cancer removal Past Anesthesia/Blood Transfusion Reactions: No Reported Reaction Past Psychological History: No Psychological Hx Reported Smoking Status: Never smoker Past Alcohol Use History: Occasional Past Drug Use History: None Reported - Past Family History Mother Family Medical History: Osteoarthritis (OA) General Exam Limitations: no limitations General appearance: alert, in no apparent distress Head exam: Present: atraumatic, normocephalic, normal inspection Neck exam: Present: normal inspection, full ROM. Absent: tenderness, meningismus, lymphadenopathy Respiratory exam: Present: normal lung sounds bilaterally. Absent: respiratory distress, wheezes, rales, rhonchi, stridor Cardiovascular Exam: Present: regular rate, normal rhythm, normal heart sounds. Absent: systolic murmur, diastolic murmur, rubs, gallop, clicks Extremities exam: Present: other (Left leg there is ecchymosis from the mid thigh down to the foot. Patient does have moderate swelling pulses equal bilaterally, equal warmth. 2 small incisions with sutures in place with no drainage well-healed tenderness) Course Vital Signs 03/20/22 03/20/22 11:12 12:46 Temperature 97.8 F Pulse Rate 79 75 Respiratory 20 16 Rate Blood Pressure 151/77 140/83 O2 Sat by Pulse 97 100 Oximetry Medical Decision Making - Medical Decision Making 58-year-old male presented for bruising, swelling after knee surgery patient does not have evidence of DVT. Patient bruising from tourniquet, swelling status post surgery patient advised to wear compression stockings, elevate ice and follow-up with orthopedics. Disposition Clinical Impression: Left leg swelling Disposition: HOME SELF-CARE Condition: Stable Instructions (If sedation given, give patient instructions): Leg Edema (ED) Additional Instructions: Please return to the Emergency Department if symptoms worsen or any other concerns. Is patient prescribed a controlled substance at d/c from ED?: No Referrals: Papito Luo MD [Primary Care Provider] - 1-2 days Time of Disposition: 12:40
[2022-03-20 12:48] VITALS: BP 140/83; PULSE 75; RESP 16
== END 2022-03-20 12:48 | disposition home or self-care (01) ==
LOC: EC 11:10
DX: T81.89XA Other complications of procedures, not elsewhere classified, initial encounter (principal); M79.89 Other specified soft tissue disorders; I10 Essential (primary) hypertension; Z88.1 Allergy status to other antibiotic agents; Z79.83 Long term (current) use of bisphosphonates
CPT/HCPCS: 99283

== ENCOUNTER → 2024-08-26 | Outpatient (CLI) | payer MEDICARE ==
--- NOTE | 2024-08-26 11:06 | CT ---
EXAMINATION TYPE: CT abdomen pelvis w con DATE OF EXAM: 08/26/2024 COMPARISON: NONE CLINICAL INDICATION: Male, 69 years old with history of R10.9 ABDOMINAL PAIN, ABDOMINAL PAIN, TECHNIQUE: CT scan of the abdomen and pelvis is performed with IV Contrast, patient injected with 100 ML mL of I sovue 300., (none if empty) Oral contrast used: with Oral Contrast (none if empty) CT DLP: 1390.3 mGycm, Automated exposure control for dose reduction was used. FINDINGS: LUNG BASES: No significant abnormality is appreciated. LIVER/GB: No significant abnormality is appreciated. PANCREAS: No significant abnormality is seen. SPLEEN: No significant abnormality is seen. ADRENALS: No significant abnormality is seen. KIDNEYS: Nonobstructing 5 to 6 mm calculus left kidney axial image 48. Symmetric cortical medullary u ptake and excretion without hydronephrosis seen bilaterally. Subcentimeter low dense round lesion rig ht kidney axial image 43 is too small to further characterize presumed benign. BOWEL: Oral contrast reaches level of the rectum. No abnormal small or large bowel dilatation is seen . Mild wall thickening in the left and sigmoid colon. Distal colonic diverticula are present. No conv incing CT evidence for acute diverticulitis. PROSTATE/SEMINAL VESICLES: No gross abnormality seen. LYMPH NODES: No greater than 1cm abdominal or pelvic lymph nodes are appreciated. OSSEOUS STRUCTURES: Bilateral pars defect L5 level. Severe grade 1 anterolisthesis L5 on S1 with adva nced disc space narrowing and vacuum disc phenomenon. OTHER: Symmetric small fat-containing bilateral inguinal hernias. Mild/moderate calcified plaque of t he abdominal aorta. IMPRESSION: Mild wall thickening in distal bowel could reflect product of uncomplicated acute mild co litis versus product of poor distention. Otherwise no acute findings are present. [facility], , 08/26/2024 11:03 AM
== END | disposition home or self-care (01) ==
LOC: RADCTMAIN 06:20
PROVIDERS: ATTEND Family Medicine
DX: K40.20 Bilateral inguinal hernia, without obstruction or gangrene, not specified as recurrent (principal); K57.30 Diverticulosis of large intestine without perforation or abscess without bleeding
CPT/HCPCS: 74177; Q9967

== ENCOUNTER 2024-08-27 08:37 | Inpatient (IN) | payer MEDICAID, MEDICARE ==
--- NOTE | 2024-08-27 09:14 | ED ---
Psych HPI - General Chief Complaint: Psychiatric Symptoms Stated Complaint: SI, homicidal Time Seen by Provider: 08/27/24 08:41 Source: patient, family, RN notes reviewed Mode of arrival: ambulatory Limitations: no limitations - History of Present Illness Initial Comments: This is a 69-year-old male presents emergency department with family for psychiatric evaluation. Patient has been having creasing depression, anxiety and worries she did not states that he was started on Celexa by his PCP 2 weeks ago he states the last several months he has noticed some depression and unintentional weight loss. Patient states that he had blood work and CT ordered by his PCP. Patient is consistently worrying about financial things even though family is showing that there is no worries and nothing is changed otherwise. Patient reportedly had a gun this morning which was loaded and had plans to shoot his and himself. Patient states he is suicidal and he does not want to live stress like this anymore. no Alcohol or drug abuse. - Related Data Home Medications Medication Instructions Recorded Confirmed Finasteride [Proscar] 5 mg PO DAILY 08/02/21 08/27/24 Citalopram Hydrobromide [CeleXA] 10 mg PO HS 08/27/24 08/27/24 Irbesartan 150 mg PO DAILY 08/27/24 08/27/24 Allergies Allergy/AdvReac Type Severity Reaction Status Date / Time clarithromycin [From Biaxin] AdvReac Nausea & Verified 08/27/24 09:50 Vomiting, Severe nightmares Review of Systems ROS Statement: Those systems with pertinent positive or pertinent negative responses have been documented in the HPI. ROS Other: All systems not noted in ROS Statement are negative. Past Medical History Past Medical History: Hypertension Additional Past Medical History / Comment(s): MRSA Left arm 2013 status post I&D 3 in the outpatient setting, MRSA neck 2010 with I&D at Dr. Epperson's office. History of Any Multi-Drug Resistant Organisms: MRSA Date of last positivie culture/infection: 04/18/2014 MDRO Source:: Left Elbow and Left Arm Past Surgical History: No Surgical Hx Reported Additional Past Surgical History / Comment(s): Repair of 3 metatarsal fractures in his foot many years ago. I&D of the neck abscess, I&D and aspiration of the left elbow abscess. Skin cancer removal Past Anesthesia/Blood Transfusion Reactions: No Reported Reaction Past Psychological History: No Psychological Hx Reported Smoking Status: Never smoker Past Alcohol Use History: Occasional Past Drug Use History: None Reported - Past Family History Mother Family Medical History: Osteoarthritis (OA) General Exam Limitations: no limitations General appearance: alert, in no apparent distress Head exam: Present: atraumatic, normocephalic, normal inspection Eye exam: Present: normal appearance, PERRL, EOMI. Absent: scleral icterus, conjunctival injection, periorbital swelling ENT exam: Present: normal exam, mucous membranes moist Neck exam: Present: normal inspection, full ROM. Absent: tenderness, meningismu s, lymphadenopathy Respiratory exam: Present: normal lung sounds bilaterally. Absent: respiratory distress, wheezes, rales, rhonchi, stridor Cardiovascular Exam: Present: regular rate, normal rhythm, normal heart sounds. Absent: systolic murmur, diastolic murmur, rubs, gallop, clicks GI/Abdominal exam: Present: soft, normal bowel sounds. Absent: distended, tenderness, guarding, rebound, rigid Neurological exam: Present: alert Psychiatric exam: Present: flat affect Course Vital Signs 08/27/24 08/27/24 08/27/24 08:39 09:14 10:24 Temperature 97.5 F L Pulse Rate 108 H Respiratory 20 15 16 Rate Blood Pressure 112/68 O2 Sat by Pulse 97 Oximetry 08/27/24 12:11 Temperature Pulse Rate Respiratory 15 Rate Blood Pressure O2 Sat by Pulse Oximetry Medical Decision Making - Medical Decision Making Was pt. sent in by a medical professional or institution (, [facility], [facility], urgent care, hospital, or skilled nursing...) When possible be specific @ -No Did you speak to anyone other than the patient for history (EMS, parent, family, police, friend...)? What history was obtained from this source @ -No Did you review nursing and triage notes (agree or disagree)? Why? @ -I reviewed and agree with nursing and triage notes Were old charts reviewed (outside hosp., previous admission, EMS record, old EKG, old radiological studies, urgent care reports/EKG's, skilled nursing records)? Report findings @ -No old charts were reviewed Differential Diagnosis (chest pain, altered mental status, abdominal pain women, abdominal pain men, vaginal bleeding, weakness, fever, dyspnea, syncope, headache, dizziness, GI bleed, back pain, seizure, CVA, palpatations, mental health, musculoskeletal)? @ -Differential Mental Health Depression, anxiety, bipolar, psychosis, schizophrenia, borderline personality, situational depression, adjustment disorder, behavioral disorder, brain tumor, malingering, substance abuse, encephalopathy, medication reaction, dementia, hypothyroidism, degenerative neurologic disorder, lupus.... This is not meant to be all-inclusive list EKG interpreted by me (3pts min.). @ -None X-rays interpreted by me (1pt min.). @ -None done CT interpreted by me (1pt min.). @ -None done U/S interpreted by me (1pt. min.). @ -None done What testing was considered but not performed or refused? (CT, X-rays, U/S, labs)? Why? @ -None What meds were considered but not given or refused? Why? @ -None Did you discuss the management of the patient with other professionals (professionals i.e. , PA, BLADE FILER, lab, RT, psych nurse, social work specialist, senior windows engineer, teacher, chief risk officer, watch caser)? Give summary @ -[EPS evaluated patient and recommended inpatient treatment Was smoking cessation discussed for >3mins.? @ -No Was critical care preformed (if so, how long)? @ -No Were there social determinants of health that impacted care today? How? (Homelessness, low income, unemployed, alcoholism, drug addiction, transportatio n, low edu. Level, literacy, decrease access to med. care, shelter, rehab)? @ -No Was there de-escalation of care discussed even if they declined (Discuss DNR or withdrawal of care, Hospice)? DNR status @ -No What co-morbidities impacted this encounter? (DM, HTN, Smoking, COPD, CAD, Cancer, CVA, ARF, Chemo, Hep., AIDS, mental health diagnosis, sleep apnea, morbid obesity)? @ -None Was patient admitted / discharged? Hospital course, mention meds given and route, prescriptions, significant lab abnormalities, going to OR and other pertinent info. @ -Admit to 3 W. Undiagnosed new problem with uncertain prognosis? @ -No Drug Therapy requiring intensive monitoring for toxicity (Heparin, Nitro, Insuli n, Cardizem)? @ -No Were any procedures done? @ -No Diagnosis/symptom? @ -Depression, suicide ideation Acute, or Chronic, or Acute on Chronic? @ -Acute Uncomplicated (without systemic symptoms) or Complicated (systemic symptoms)? @ -Complicated Side effects of treatment? @ -No Exacerbation, Progression, or Severe Exacerbation? @ -No Poses a threat to life or bodily function? How? (Chest pain, USA, AR, pneumonia, PE, COPD, DKA, ARF, appy, cholecystitis, CVA, Diverticulitis, Homicidal, Suicidal, threat to staff... and all critical care pts) @ -Yes patient is suicidal - Lab Data Result diagrams: 08/27/24 09:03 08/27/24 09:03 Lab Results 08/27/24 08/27/24 08/27/24 Range/Units 09:03 09:03 09:06 WBC 8.5 (3.8-10.6) k/uL RBC 5.53 (4.30-5.90) m/uL Hgb 16.5 (13.0-17.5) gm/dL Hct 49.2 (39.0-53.0) % MCV 88.9 (80.0-100.0) fL MCH 29.9 (25.0-35.0) pg MCHC 33.7 (31.0-37.0) g/dL RDW 12.6 (11.5-15.5) % Plt Count 192 (150-450) k/uL MPV 8.4 Neutrophils % 85 % Lymphocytes % 7 % Monocytes % 6 % Eosinophils % 0 % Basophils % 0 % Neutrophils # 7.2 (1.3-7.7) k/uL Lymphocytes # 0.6 L (1.0-4.8) k/uL Monocytes # 0.5 (0-1.0) k/uL Eosinophils # 0.0 (0-0.7) k/uL Basophils # 0.0 (0-0.2) k/uL Sodium 137 (137-145) mmol/L Potassium 3.9 (3.5-5.1) mmol/L Chloride 101 (98-107) mmol/L Carbon Dioxide 26 (22-30) mmol/L Anion Gap 10 mmol/L BUN 12 (9-20) mg/dL Creatinine 0.84 (0.66-1.25) mg/dL Est GFR (CKD-EPI)AfAm >90 (>60 ml/min/1.73 sqM) Est GFR (CKD-EPI)NonAf 88 (>60 ml/min/1.73 sqM) Glucose 143 H (74-99) mg/dL Calcium 10.3 H (8.4-10.2) mg/dL Total Bilirubin 2.6 H (0.2-1.3) mg/dL AST 25 (17-59) U/L ALT 22 (4-49) U/L Alkaline Phosphatase 63 (38-126) U/L Total Protein 6.7 (6.3-8.2) g/dL Albumin 4.4 (3.5-5.0) g/dL Urine Color Urine Appearance (Clear) Urine pH (5.0-8.0) Ur Specific [place] (1.001-1.035) Urine Protein (Negative) Urine Glucose (UA) (Negative) Urine Ketones (Negative) Urine Blood (Negative) Urine Nitrite (Negative) Urine Bilirubin (Negative) Urine Urobilinogen (<2.0) mg/dL Ur Leukocyte Esterase (Negative) Urine Opiates Screen (NotDetected) Ur Oxycodone Screen (NotDetected) Urine Methadone Screen (NotDetected) Ur Barbiturates Screen (NotDetected) U Tricyclic Antidepress (NotDetected) Ur Phencyclidine Scrn (NotDetected) Ur Amphetamines Screen (NotDetected) U Methamphetamines Scrn (NotDetected) U Benzodiazepines Scrn (NotDetected) Urine Cocaine Screen (NotDetected) U Marijuana (THC) Screen (NotDetected) SARS-CoV-2 (PCR) Not Detected (Not Detectd) 08/27/24 Range/Units 10:45 WBC (3.8-10.6) k/uL RBC (4.30-5.90) m/uL Hgb (13.0-17.5) gm/dL Hct (39.0-53.0) % MCV (80.0-100.0) fL MCH (25.0-35.0) pg MCHC (31.0-37.0) g/dL RDW (11.5-15.5) % Plt Count (150-450) k/uL MPV Neutrophils % % Lymphocytes % % Monocytes % % Eosinophils % % Basophils % % Neutrophils # (1.3-7.7) k/uL Lymphocytes # (1.0-4.8) k/uL Monocytes # (0-1.0) k/uL Eosinophils # (0-0.7) k/uL Basophils # (0-0.2) k/uL Sodium (137-145) mmol/L Potassium (3.5-5.1) mmol/L Chloride (98-107) mmol/L Carbon Dioxide (22-30) mmol/L Anion Gap mmol/L BUN (9-20) mg/dL Creatinine (0.66-1.25) mg/dL Est GFR (CKD-EPI)AfAm (>60 ml/min/1.73 sqM) Est GFR (CKD-EPI)NonAf (>60 ml/min/1.73 sqM) Glucose (74-99) mg/dL Calcium (8.4-10.2) mg/dL Total Bilirubin (0.2-1.3) mg/dL AST (17-59) U/L ALT (4-49) U/L Alkaline Phosphatase (38-126) U/L Total Protein (6.3-8.2) g/dL Albumin (3.5-5.0) g/dL Urine Color Light Yellow Urine Appearance Clear (Clear) Urine pH 7.0 (5.0-8.0) Ur Specific [place] 1.012 (1.001-1.035) Urine Protein Negative (Negative) Urine Glucose (UA) Negative (Negative) Urine Ketones Trace H (Negative) Urine Blood Negative (Negative) Urine Nitrite Negative (Negative) Urine Bilirubin Negative (Negative) Urine Urobilinogen <2.0 (<2.0) mg/dL Ur Leukocyte Esterase Negative (Negative) Urine Opiates Screen Not Detected (NotDetected) Ur Oxycodone Screen Not Detected (NotDetected) Urine Methadone Screen Not Detected (NotDetected) Ur Barbiturates Screen Not Detected (NotDetected) U Tricyclic Antidepress Not Detected (NotDetected) Ur Phencyclidine Scrn Not Detected (NotDetected) Ur Amphetamines Screen Not Detected (NotDetected) U Methamphetamines Scrn Not Detected (NotDetected) U Benzodiazepines Scrn Not Detected (NotDetected) Urine Cocaine Screen Not Detected (NotDetected) U Marijuana (THC) Screen Not Detected (NotDetected) SARS-CoV-2 (PCR) (Not Detectd) Disposition Clinical Impression: Suicidal ideation, Depression Disposition: TRANSFER TO PSYCH HOSP/UNIT Referrals: Papito Luo MD [Primary Care Provider] - 1-2 days Time of Disposition: 12:44
[2024-08-27 09:20] LABS: Basophils % (A) 0 %; Eosinophils % (A) 0 %; HCT 49.2 % (39.0-53.0); HGB 16.5 gm/dL (13.0-17.5); Lymphocytes # (A) 0.6 k/uL (1.0-4.8); Lymphocytes % (A) 7 %; MCH 29.9 pg (25.0-35.0); MCHC 33.7 g/dL (31.0-37.0); MCV 88.9 fL (80.0-100.0); Mean Platelet Volume 8.4; Monocytes # (A) 0.5 k/uL (0-1.0); Monocytes % (A) 6 %; Neutrophils # (A) 7.2 k/uL (1.3-7.7); Neutrophils % (A) 85 %; Platelet Count 192 k/uL (150-450); RBC 5.53 m/uL (4.30-5.90); RDW 12.6 % (11.5-15.5); WBC 8.5 k/uL (3.8-10.6)
[2024-08-27 09:38] LABS: ALT 22 U/L (4-49); AST 25 U/L (17-59); African American GFR (CKD) >90 (>60 ml/min/1.73 sqM); Albumin 4.4 g/dL (3.5-5.0); Alkaline Phosphatase 63 U/L (38-126); Anion Gap 10 mmol/L; Blood Urea Nitrogen 12 mg/dL (9-20); Calcium 10.3 mg/dL (8.4-10.2); Carbon Dioxide 26 mmol/L (22-30); Chloride 101 mmol/L (98-107); Glucose 143 mg/dL (74-99); Non-African American GFR(CKD) 88 (>60 ml/min/1.73 sqM); Potassium 3.9 mmol/L (3.5-5.1); Sodium 137 mmol/L (137-145); Total Bilirubin 2.6 mg/dL (0.2-1.3); Total Protein 6.7 g/dL (6.3-8.2)
[2024-08-27 11:01] LABS: Appearance,Urine Clear (Clear); Bilirubin,Urine Negative (Negative); Blood,Urine Negative (Negative); Color,Urine Light Yellow; Glucose,Urine (UA) Negative (Negative); Ketones,Urine Trace (Negative); Leukocyte Esterase,Urine Negative (Negative); Nitrite,Urine Negative (Negative); Protein,Urine Negative (Negative); Specific Gravity,Urine 1.012 (1.001-1.035); Urobilinogen,Urine <2.0 mg/dL (<2.0)
[2024-08-27 11:21] LABS: Amphetamine Screen,Urine Not Detected (NotDetected); Barbiturate Screen,Urine Not Detected (NotDetected); Benzodiazepines Screen,Urine Not Detected (NotDetected); Cocaine Screen,Urine Not Detected (NotDetected); Methadone Screen, Urine Not Detected (NotDetected); Opiate Screen,Urine Not Detected (NotDetected); Oxycodone Screen, Urine Not Detected (NotDetected); Phencyclidine Screen,Urine Not Detected (NotDetected); Tricyclic Antidepressant,Urine Not Detected (NotDetected); Urn Cannabinoid Scrn Not Detected (NotDetected)
[2024-08-27] MEDS ORDERED: OLANZapine 10 MG VIAL IM PRN (14:51)
[2024-08-27] MEDS ORDERED: IBUPROFEN 600 MG TAB PO PRN (14:51)
[2024-08-27] MEDS ORDERED: ACETAMINOPHEN TAB 325 MG TAB PO PRN (14:51)
[2024-08-27] MEDS ORDERED: MAGNESIUM HYDROXIDE 2,400 MG/30 ML CUP PO PRN (14:51)
[2024-08-27] MEDS: CITALOPRAM HYDROBROMIDE 10 MG TAB PO SCH (20:56)
[2024-08-28] MEDS: FINASTERIDE 5 MG TAB PO SCH (08:20)
[2024-08-28] MEDS: LOSARTAN 50 MG TAB PO SCH (08:20)
--- NOTE | 2024-08-28 12:25 | P.HP ---
Psychiatric H&P - . H&P Date: 08/28/24 History & Physical: Allergies Allergy/AdvReac Type Severity Reaction Status Date / Time clarithromycin from Biaxin AdvReac Nausea & Verified 08/27/24 09:50 Vomiting, Severe nightmares Vital Signs Temp 98.2 F 08/28/24 09:00 Pulse 77 08/28/24 09:00 Resp 16 08/28/24 09:00 BP 120/70 08/28/24 09:00 Pulse Ox 97 08/28/24 09:00 FiO2 Intake & Output 08/27/24 08/28/24 08/28/24 18:59 06:59 18:59 Weight 93.525 kg Laboratory Last Values WBC 8.5 k/uL (3.8-10.6) 08/27/24 09:03 RBC 5.53 m/uL (4.30-5.90) 08/27/24 09:03 Hgb 16.5 gm/dL (13.0-17.5) 08/27/24 09:03 Hct 49.2 % (39.0-53.0) 08/27/24 09:03 MCV 88.9 fL (80.0-100.0) 08/27/24 09:03 MCH 29.9 pg (25.0-35.0) 08/27/24 09:03 MCHC 33.7 g/dL (31.0-37.0) 08/27/24 09:03 RDW 12.6 % (11.5-15.5) 08/27/24 09:03 Plt Count 192 k/uL (150-450) 08/27/24 09:03 MPV 8.4 08/27/24 09:03 Neutrophils % 85 % 08/27/24 09:03 Lymphocytes % 7 % 08/27/24 09:03 Monocytes % 6 % 08/27/24 09:03 Eosinophils % 0 % 08/27/24 09:03 Basophils % 0 % 08/27/24 09:03 Neutrophils # 7.2 k/uL (1.3-7.7) 08/27/24 09:03 Lymphocytes # 0.6 k/uL (1.0-4.8) L 08/27/24 09:03 Monocytes # 0.5 k/uL (0-1.0) 08/27/24 09:03 Eosinophils # 0.0 k/uL (0-0.7) 08/27/24 09:03 Basophils # 0.0 k/uL (0-0.2) 08/27/24 09:03 Sodium 137 mmol/L (137-145) 08/27/24 09:03 Potassium 3.9 mmol/L (3.5-5.1) 08/27/24 09:03 Chloride 101 mmol/L (98-107) 08/27/24 09:03 Carbon Dioxide 26 mmol/L (22-30) 08/27/24 09:03 Anion Gap 10 mmol/L 08/27/24 09:03 BUN 12 mg/dL (9-20) 08/27/24 09:03 Creatinine 0.84 mg/dL (0.66-1.25) 08/27/24 09:03 Est GFR (CKD-EPI)AfAm >90 (>60 ml/min/1.73 sqM) 08/27/24 09:03 Est GFR (CKD-EPI)NonAf 88 (>60 ml/min/1.73 sqM) 08/27/24 09:03 Glucose 143 mg/dL (74-99) H 08/27/24 09:03 Calcium 10.3 mg/dL (8.4-10.2) H 08/27/24 09:03 Total Bilirubin 2.6 mg/dL (0.2-1.3) H 08/27/24 09:03 AST 25 U/L (17-59) 08/27/24 09:03 ALT 22 U/L (4-49) 08/27/24 09:03 Alkaline Phosphatase 63 U/L (38-126) 08/27/24 09:03 Total Protein 6.7 g/dL (6.3-8.2) 08/27/24 09:03 Albumin 4.4 g/dL (3.5-5.0) 08/27/24 09:03 Urine Color Light Yellow 08/27/24 10:45 Urine Appearance Clear (Clear) 08/27/24 10:45 Urine pH 7.0 (5.0-8.0) 08/27/24 10:45 Ur Specific [place] 1.012 (1.001-1.035) 08/27/24 10:45 Urine Protein Negative (Negative) 08/27/24 10:45 Urine Glucose (UA) Negative (Negative) 08/27/24 10:45 Urine Ketones Trace (Negative) H 08/27/24 10:45 Urine Blood Negative (Negative) 08/27/24 10:45 Urine Nitrite Negative (Negative) 08/27/24 10:45 Urine Bilirubin Negative (Negative) 08/27/24 10:45 Urine Urobilinogen <2.0 mg/dL (<2.0) 08/27/24 10:45 Ur Leukocyte Esterase Negative (Negative) 08/27/24 10:45 Urine Opiates Screen Not Detected (NotDetected) 08/27/24 10:45 Ur Oxycodone Screen Not Detected (NotDetected) 08/27/24 10:45 Urine Methadone Screen Not Detected (NotDetected) 08/27/24 10:45 Ur Barbiturates Screen Not Detected (NotDetected) 08/27/24 10:45 U Tricyclic Antidepress Not Detected (NotDetected) 08/27/24 10:45 Ur Phencyclidine Scrn Not Detected (NotDetected) 08/27/24 10:45 Ur Amphetamines Screen Not Detected (NotDetected) 08/27/24 10:45 U Methamphetamines Scrn Not Detected (NotDetected) 08/27/24 10:45 U Benzodiazepines Scrn Not Detected (NotDetected) 08/27/24 10:45 Urine Cocaine Screen Not Detected (NotDetected) 08/27/24 10:45 U Marijuana (THC) Screen Not Detected (NotDetected) 08/27/24 10:45 SARS-CoV-2 (PCR) Not Detected (Not Detectd) 08/27/24 09:06 08/28/24 12:11 IDENTIFYING DATA: Patient is a 69-year-old male, , working part-time CHIEF COMPLAINT: SI/HI HPI: Patient presented to the hospital with psychiatric concerns. Patient reportedly had a loaded gun and had plans to shoot his and himself. EPS note reveals, "Clinician met with Brock and his family in ER 12 for eval. Cl awake laying in bed A/O x4 brought in by family voluntarily due to SI/HI w plan and access. Cl reports on set of severe depression and anxiety that began after the first of the year. Cl reports symptoms have been building up the past few months related to life stressors and excessive worry that things will not be able to be covered if something "happens." Cl's family indicates there are no financial issues or concerns that this time and that all needs are met. Family is confused and concerned where these thoughts are coming from for Gabriele as they have never been to this magnitude. Cl reports feeling like a burden,hopeless,he lpless,disapointed in themselves, a faliure to their family, with low motivation, racing thoughts, loss of interest, low energy, poor focus and concentration. Cl reports these pervasive thoughts have come to a point where they have "no solutions". Cl states " The only relief I have gotten is when I sleep, and there are days I am disapointed that I woke up." Cl's ED visit was prompted by suicidal/homicidal thoughts toward themselves and their . Cl indicates they had a loaded gun and intended on carrying out the plan the day before. Cl's and daughter were not aware of this until Cl was ready to engage in the plan today. Cl's reports cl had a loaded gun and she was able to get them outside away from the gun until their daughter arrived. CL's states she will be removing the gun later today. Cl continued to discuss what appears to be irrational fears of "losing everything." Cl states " thats all I think about, I just roam from room to room and can't turn it off. I feel like my world is collapsing around me and that I am only a burden on them. I can't see a purpose in going on, I can't find a solution that works. Everything I touch gets ruined or people get hurt." Cl's family disagrees with these statements and reassures cl they need help. Cl reports poor appetite and loss of 20lbs the last 60 days. Cl reports trouble engaging in daily activities. Cl becomes tearful at 's overwhelmed emotions. Cl states " I am just breaking you, I am making it worse on you." Cl reports being started on Celexa 10 mg a few days prior by their PCP Dr. Papito Luo. 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 Cl also reports hx of being in the [employer] but does not use VA benefits. 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 Judgement/insight/impulse control : Currently poor. ADLS: poor Sleep: broken Appetite: decreased w sig weight loss. Medical issues: High BP and medication for prostate concerns. Medications: medical meds and Celexa 10 mg daily. Hx of MH tx: none reported. Family indicates cl does not open up about their feelings often. Hx of in pat: Intial, no previous. Hx of ALEXANDRO: none reported BAT: 0.0 / UDS: neg. Hx of in pat rehab: none reported. Fam hx: none reported. Both parents . Father left at age 14, estranged relationship in past. Hx of trauma: no abuse reported. 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 Hx of self harm: none reported. Hx of legal: none r eported. Denies ROSAURA/DEL" Patient seen and evaluated on the unit and was agreeable with speaking to job specification writer in office. He displayed predominate negative thoughts, perseverations on financial stressors. Patient reports ultimately feeling depressed a few months back due to financial stressors. Patient states he never plan for the future and that him and his has been living [id number], with fears of his house being foreclosed. Patient further states that he may need a new furnace installed in his home which will cost $10- $20,000 and that he is also inferior been losing their [place]. He feels as though his family is trying to sugarcoat these stressors. He reports he thought he had found a way to end this stress, now however expressing predominant remorse for his actions with a loaded gun. He states "50 years of marriage is down the drain in 2 minutes" and he expressed fears of being institutionalized for the rest of his or in residential. Patient is not amenable to any alternative thoughts or alternative reasonings related to his cognitive distortions. He states he does not feel as though he will be able to see his family again. He is fixated on being unable to solve his problems as he is usually a solution oriented individual. Patient reports sleep difficulties, poor appetite with weight loss, hopelessness, poor concentration. He reports anxiety that does appear more generalized in nature including racing thoughts. Patient denies any suicidal or homicidal ideations intent or plan. At this time patient denies any auditory or visual hallucinations. Patient denies any flight of ideas racing thoughts and increased in goal directed behavior. Patient admits to using no substances PAST PSYCHIATRIC HISTORY: Patient has a recent onset of depression. Patient was recently prescribed Celexa 10 mg at bedtime by his PCP. Patient denies any previous psychiatric hospitalizations. Patient denies any psychiatric outpatient follow-up. Patient denies any history of suicide attempts in the past. PMH: as per ER note ALLERGIES: as per EMR SUBSTANCE USE HISTORY: Denies FAMILY PSYCHIATRIC/SUBSTANCE USE HISTORY: He states his grandson has depression SOCIAL HISTORY: Patient is and has 2 daughters. 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 MENTAL STATUS EXAM: General Appearance: Patient appears to be stated age is alert, directable, and attempts to cooperate. Patient appears to have fair hygiene and grooming. Behavior: Patient is seated without any agitated behavior. Speech: Patient's speech is fluent and nonpressured. Mood/Affect: Patient reports their mood is depressed, affect is congruent and constricted. Suicidality/Homicidality: Patient denies having any homicidal ideation intent or plan. Denies any suicidal ideations intent or plan Perceptions: Patient denies any visual hallucinations and denies any auditory hallucinations Though content/process: There is no evidence of any delusional thought content and thought process is linear and goal-directed. Memory and concentration: AOX3, grossly intact for the purposes of this session. Can spell "WORLD" backwards Judgment and insight: Poor STRENGTHS/WEAKNESSES: strength is that patient is resilient and has family support. Weakness is that patient has poor judgment, a lot of negative self talk and is impulsive INTELLECT: Average IMPRESSIONS: Major depressive disorder, single episode, severe Generalized anxiety disorder PLAN: -Patient is admitted under voluntary status to MHU for stabilization of psychiatric symptoms and safety. Patient has signed adult voluntary form and medication consent and is placed in patient's chart. -Medications : Discontinue Celexa and start Remeron 7.5 mg at bedtime for depres duane/anxiety - Zyprexa PRN for agitation/aggression -Patient was informed of the risks, benefits and side effects of the medication and patient verbally consented to taking the medications. Patient signed med consent form and was placed in chart. -Internal Medicine consult to perform medical evaluation and physical. -NRT -not needed as patient does not smoke -SW on board for discharge planning. Encourage patient to participate in groups to work on coping skills.
[2024-08-28 13:03] LABS: Basophils % (A) 0 %; Eosinophils # (A) 0.1 k/uL (0-0.7); Eosinophils % (A) 1 %; HCT 52.1 % (39.0-53.0); HGB 17.5 gm/dL (13.0-17.5); Lymphocytes # (A) 1.3 k/uL (1.0-4.8); Lymphocytes % (A) 12 %; MCH 30.3 pg (25.0-35.0); MCHC 33.6 g/dL (31.0-37.0); MCV 90.1 fL (80.0-100.0); Mean Platelet Volume 8.4; Monocytes # (A) 0.7 k/uL (0-1.0); Monocytes % (A) 6 %; Neutrophils # (A) 8.6 k/uL (1.3-7.7); Neutrophils % (A) 79 %; Platelet Count 207 k/uL (150-450); RBC 5.78 m/uL (4.30-5.90); RDW 12.7 % (11.5-15.5); WBC 10.8 k/uL (3.8-10.6)
[2024-08-28 13:28] LABS: ALT 21 U/L (4-49); AST 26 U/L (17-59); African American GFR (CKD) >90 (>60 ml/min/1.73 sqM); Albumin 4.5 g/dL (3.5-5.0); Alkaline Phosphatase 76 U/L (38-126); Anion Gap 10 mmol/L; Bilirubin, Delta 0.1 mg/dL (0.0-0.2); Bilirubin,Unconjugated 2.3 mg/dL (0.0-1.1); Blood Urea Nitrogen 13 mg/dL (9-20); Calcium 10.6 mg/dL (8.4-10.2); Carbon Dioxide 28 mmol/L (22-30); Chloride 99 mmol/L (98-107); Glucose 111 mg/dL (74-99); Non-African American GFR(CKD) >90 (>60 ml/min/1.73 sqM); Potassium 4.2 mmol/L (3.5-5.1); Sodium 137 mmol/L (137-145); Total Bilirubin 2.4 mg/dL (0.2-1.3); Total Protein 6.8 g/dL (6.3-8.2)
--- NOTE | 2024-08-28 16:25 | CT ---
EXAMINATION TYPE: CT brain wo con DATE OF EXAM: 08/28/2024 COMPARISON: 08/02/2021 CLINICAL INDICATION: Male, 69 years old with history of altered mental status; PHH, ams CT DLP: 1340 mGycm Automated exposure control for dose reduction was used. Findings: The ventricles, basal cisterns and sulci over the convexities are moderately enlarged consistent with moderate generalized atrophy. There is moderate decreased density in the periventricular white matte r consistent with moderate chronic ischemic white matter demyelination. There is no mass effect or sh ift of midline structures There is no acute intra or extra-axial hemorrhage. The posterior fossa including the brainstem, fourth ventricle and cerebellar pontine angles appear no rmal. Intraorbital contents appear normal and symmetric. Visualized paranasal sinuses and mastoid air cells are well aerated. The calvarium is intact. IMPRESSION: 1. No acute bleed or mass effect. 2. Moderate senescent changes as described above. [facility], , 08/28/2024 4:22 PM
[2024-08-28 18:27] LABS: Chol/HDL Ratio 2.16 Ratio; LDL Cholesterol,Calculated 58.6 mg/dL (0.0-131.0)
[2024-08-28] MEDS: MIRTAZAPINE 15 MG TAB PO SCH (21:03)
--- NOTE | 2024-08-29 00:49 | CONS ---
CONSULTATION REASON FOR CONSULTATION: Advice regarding hypertension and other medical issues, requested by Psychiatry. HISTORY OF PRESENT ILLNESS: This is a 69-year-old gentleman with a past medical history of hypertension, being followed Dr. Cerda in the outpatient setting, admitted with evaluation of psychiatric symptoms and safety, and is being evaluated for depression at this time. There is no history of any fever, rigors, or chills. PAST MEDICAL HISTORY: Reviewed include hypertension and history of MRSA. Rest of the history and rest of the chart are also reviewed. MEDICATIONS: Reviewed include Excedrin. Dose and rest of medications reviewed. ALLERGIES: Biaxin. FAMILY HISTORY: History of DJD. SOCIAL HISTORY: Occasional alcohol. REVIEW OF SYSTEMS: Fourteen-point review of systems is negative except as mentioned earlier. PHYSICAL EXAMINATION: VITAL SIGNS: Pulse is 84, blood pressure 144/70, and respiration 17. HEENT: Conjunctivae normal. NECK: No JVD. CARDIOVASCULAR: S1, S2. RESPIRATIONS: Breath sounds diminished at the bases. ABDOMEN: Soft. LEGS: No edema. NERVOUS SYSTEM: No focal deficits. Cranial nerves are normal. LABORATORY DATA: Bilirubin is 2.4 2.3. ASSESSMENT: 1. Depression. 2. Hypertension. 3. Unconjugated hyperbilirubinemia, possibly congenital. 4. Mild hypercalcemia. 5. History of methicillin-resistant Staphylococcus aureus. RECOMMENDATIONS AND DISCUSSION: This 69-year-old gentleman presented with depression. I recommend to continue the current medications and current symptomatic treatment otherwise. The patient had a CT brain in 2021. The patient also had some small frontal scalp calcification and chronic white matter ischemic changes. I would recommend repeat CT of the brain and also had serum parathyroid hormone to rule out the possibility of hyperparathyroidism. The patient has some itchy skin lesions over the hands also. We will continue to monitor and recommend close followup with the primary physician in the outpatient setting. Thank you for the consult. MMODL / IJN: [id number] / VARSHA
--- NOTE | 2024-08-29 11:54 | P.PN ---
Progress Note - Text Progress Note Date: 08/29/24 Interval History: Patient was seen in bed and was directable and agreeable to speak with teletypewriter operator in the office. He states feeling worse today and that he has no solutions to his problems discussed yesterday, mostly financial. He does mention improvement in his sleep and increase in his appetite today. He states it was great to see his yesterday during visitation. Patient still displays perseverations on financial stressors that according to are nonexistent. Attempted to discuss lab work with patient including elevated calcium and parathyroid hormone however he was not amenable to this being a possible cause to his ongoing symptoms. He does report suicidal ideations today however does deny homicidal ideations. He denied any memory impairment, was A&Ox3. \Patient denies any auditory, visual hallucinations and denies any paranoia or delusions. Patient denies any side effects from the medications and has been compliant with meds. Talked to patient's Afsaneh who states patient has no history of depression. She states patient has been getting more stressed helping grandson. On August 16 he had increased fatigue, stomach pain, and pain after he eat. She states he went to his PCP who ordered bloodwork and CT scan but they have not gotten the results back. She states patient's PCP started him on celexa and this is where they started noticing worsening symptoms including scattered thoughts, increased fatigue, restlessness. On Monday is when he started talking about losing their cabin and getting a new furnace etc. Monday is when the suicidal thoughts began and advanced rapidly. All questions addressed at this time. Mental Status Exam: General Appearance: Patient appears to be stated age is alert, directable, and cooperative. Behavior: Patient is calmly seated without any agitated behavior. Speech: Patient's speech is fluent and nonpressured. Mood/Affect: Mood is depressed, affect is congruent and constricted. Suicidality/Homicidality: Patient denies having any homicidal ideation intent or plan. He does report suicidal ideations today Perceptions: Patient denies any visual hallucinations and denies any auditory hallucinations Though content/process: Thought content display perseverations on financial stressors, negative self talk displayed Memory and concentration: AOX3, grossly intact for the purposes of this session Judgment and insight: Improving mildly Assessment Depressive disorder due to another medical condition (hyperparathyroidism) Rule out major depressive disorder, single episode, severe Generalized anxiety disorder Plan: -Patient continues to meet criteria for inpatient psychiatric admission for symptom stabilization and safety. Patient has signed adult voluntary form and medication consent and was placed in patient's chart. -Medications: Continue Remeron 7.5 mg at bedtime for depression/anxiety, start Seroquel 25 mg at bedtime for mood stabilization -When necessary Zyprexa for agitation/aggression. -Labs: PTH elevated at 86, CT head revealed moderate atrophy related to senescent changes, calcium elevated at 10.6 -SW on board for discharge planning. Encouraged the patient to participate in milieu.
[2024-08-29] MEDS: QUEtiapine 25 MG TAB PO SCH (20:22)
--- NOTE | 2024-08-30 11:55 | P.PN ---
Progress Note - Text Progress Note Date: 08/30/24 Interval History: Patient was seen in his room and was directable and agreeable to speak with wr iter in the office. Patient continues to display a negative thoughts, perseverations on financial stressors that are nonexistent. He reports feeling "not good" because of this and that his stay here is not going to change the external issues. He reports poor appetite, low energy and feeling tired. He was reminded of his lab abnormalities and to follow-up with his outpatient PCP to which patient remarks "if I can make it that far". He talked about his actions destroying the lives of his family, not amenable to any alternative thoughts or suggestions at this time. He does report sleeping well. He has been attending groups. At this time patient denies any suicidal or homicidal ideations, intent or plan. Patient denies any auditory, visual hallucinations and denies any paranoia. Patient denies any side effects from the medications and has been compliant with meds. Mental Status Exam: General Appearance: Patient appears to be stated age is alert, directable, and cooperative. Behavior: Patient is calmly seated without any agitated behavior. Speech: Patient's speech is fluent and nonpressured. Mood/Affect: Mood is depressed, affect is congruent and constricted. Suicidality/Homicidality: Patient denies having any suicidal or homicidal ideation intent or plan. Perceptions: Patient denies any visual hallucinations and denies any auditory hallucinations Though content/process: There is evidence of nonbizarre delusions of financial stressors, thought content is fixated on this, negative thoughts demonstrated Memory and concentration: AOX3, grossly intact for the purposes of this session Judgment and insight: Improving mildly Assessment Depressive disorder due to another medical condition (hyperparathyroidism) Rule out major depressive disorder, single episode, severe Generalized anxiety disorder Plan: -Patient continues to meet criteria for inpatient psychiatric admission for symptom stabilization and safety. Patient has signed adult voluntary form and medication consent and was placed in patient's chart. -Medications: Increase Remeron to 15 mg at bedtime tonight for depression/anxiety, continue Seroquel 25 mg at bedtime for psychosis/mood stabilization (plan on increasing this med to 50 mg at bedtime tomorrow) -When necessary Zyprexa for agitation/aggression. -Labs: PTH elevated at 86, CT head revealed moderate atrophy related to senescent changes, calcium elevated at 10.6 -SW on board for discharge planning. Encouraged the patient to participate in milieu.
[2024-08-30] MEDS: MIRTAZAPINE 15 MG TAB PO SCH (20:09)
--- NOTE | 2024-08-30 23:13 | PN ---
PROGRESS NOTE DATE OF SERVICE: 08/30/2024 SUBJECTIVE: This is a 69-year-old gentleman, who was admitted with depression, had mild hyperparathyroidism. The patient is severely depressed and the depression could be due to some other reason than hyperparathyroidism, which is really in the early stage at this time. There is no history of any fever, rigors, or chills. PAST MEDICAL HISTORY: Reviewed. PHYSICAL EXAMINATION: VITAL SIGNS: Pulse is 101 blood pressure 138/76, respirations 16. CHEST: Clear to auscultation. CARDIOVASCULAR: S1, S2. ABDOMEN: Soft. NERVOUS SYSTEM: Nonfocal. LABORATORY DATA: Reviewed. ASSESSMENT: 1. Depression. 2. Very early hyperparathyroidism with mild hypercalcemia. 3. Hypertension. 4. Uncontrolled hyperlipidemia, possibly congenital. 5. History of methicillin-resistant Staphylococcus aureus. RECOMMENDATIONS: Recommended to continue with current management, continue with symptomatic treatment. Recommended outpatient followup with primary physician as well as Endocrine. The primary hyperparathyroidism is probably in a very early stage and the other cause for depression such as endogenous depression to be considered. Closely follow with Psychiatry. MMODL / IJN: [id number] /
--- NOTE | 2024-08-31 12:28 | P.PN ---
Progress Note - Text Progress Note Date: 08/31/24 Interval history: Patient was seen sitting in the common room and was directable and agreeable to speak with card writer hand. Patient claims that he is feeling depressed today, endorsing anxiety. Claims that he feels he did sleep a little bit last night however continues to have issues with maintaining sleep. He describes having severe issues with finances and claims that he will affect "a lot of people in my family". He was fairly guarded about what had occurred. States that he is feeling very stressed lately, mainly isolating on the unit. At this time patient denies any suicidal or homicidal ideations intent or plan. Denies any Auditory or visual hallucinations. Patient denies any side effects from the medications and has been compliant with meds. Mental status exam: General Appearance: Patient appears to be balding, stated age is alert, directable, attempts to be cooperative. Behavior: No agitated behavior. Patient is calm and directable, somewhat guarded and evasive Speech: Patient's speech is fluent and nonpressured. [place] Mood/Affect: Mood is depressed and anxious, affect is congruent and constricted. Suicidality/Homicidality: Patient denies having any suicidal or homicidal ideation intent or plan. Perceptions: Patient denies any auditory or visual hallucinations. Though content/process: There is no evidence of any delusional thought content and thought process is linear and goal-directed. Rambling, focused on his stressors Memory and concentration: AOX3, grossly intact for the purposes of this session Judgment and insight: Poor Assessment/Plan: Continue with current diagnosis. Patient continues to meet criteria for inpatient psychiatric admission for symptom stabilization and safety. Patient will be maintained on current psychotropic medication regimen, adding Zoloft 25 mg daily for mood/anxiety, Seroquel 25 mg nightly for mood stabilization/sleep. Monitor for medication compliance and for any psychotropic medication side effects. Will continue to monitor ongoing response to treatment. Encouraged participation in milieu.
[2024-08-31] MEDS: SERTRALINE 25 MG TAB PO SCH (13:18)
[2024-08-31] MEDS: QUEtiapine 25 MG TAB PO SCH (20:02)
[2024-08-31] MEDS ORDERED: QUEtiapine 50 MG TAB PO SCH (21:00)
--- NOTE | 2024-09-01 11:08 | P.PN ---
Progress Note - Text Progress Note Date: 09/01/24 Interval history: Patient was seen sitting on his bed today and was directable and agreeable to speak with credit underwriter. Patient has been mainly isolating on the unit. Patient claims that he is feeling depressed today, endorsing anxiety however was continuing to be fairly guarded about his issues at home. Claims that he only slept on and off last night. Also claims that he is still feeling like the medications have not been helping. He describes once again of having severe issues with finances at home. He was fairly guarded about what had occurred. At this time patient denies any suicidal or homicidal ideations intent or plan. Denies any Auditory or visual hallucinations. Patient denies any side effects from the medications and has been compliant with meds. Mental status exam: General Appearance: Patient appears to be balding, stated age is alert, directable, attempts to be cooperative. Behavior: No agitated behavior. Patient is calm and directable, somewhat guarded and evasive Speech: Patient's speech is fluent and nonpressured. [place] Mood/Affect: Mood is depressed and anxious, affect is congruent and constricted. Suicidality/Homicidality: Patient denies having any suicidal or homicidal ideation intent or plan. Perceptions: Patient denies any auditory or visual hallucinations. Though content/process: There is no evidence of any delusional thought content and thought process is linear and goal-directed. focused on his stressors Memory and concentration: AOX3, grossly intact for the purposes of this session Judgment and insight: Poor, improving mildly Assessment/Plan: Continue with current diagnosis. Patient continues to meet criteria for inpatient psychiatric admission for symptom stabilization and safety. Patient will be maintained on current psychotropic medication regimen, increase Zoloft 50 mg daily for mood/anxiety, increase Remeron to 30 mg nightly. Monitor for medication compliance and for any psychotropic medication side effects. Will continue to monitor ongoing response to treatment. Encouraged participation in milieu.
[2024-09-01] MEDS: MIRTAZAPINE 15 MG TAB PO SCH (20:20)
[2024-09-02] MEDS: SERTRALINE 50 MG TAB PO SCH (08:30)
--- NOTE | 2024-09-02 10:57 | P.PN ---
Progress Note - Text Progress Note Date: 09/02/24 Interval History: Patient was seen in his room and was directable and agreeable to speak with wr iter in the office. He mentions feeling worse today due to "nothing is changed" and "still having no solutions". Patient continues to express negative thoughts, some slight delusional thoughts regarding his finances that are nonexistent per . He was encouraged to use coping skills however he declined stating that they are not helpful. He has been attending groups however he states that there is no point in attending them as this will not change his outside triggers. He did mention seeing his over the weekend and that this was nice. He reports sleeping well. He does report suicidal ideations, passive in nature. At this time patient denies any homicidal ideations, intent or plan. Patient denies any auditory, visual hallucinations and denies any paranoia or delusions. Patient denies any side effects from the medications and has been compliant with meds. Mental Status Exam: General Appearance: Patient appears to be stated age is alert, directable, and cooperative. Behavior: Patient is calmly seated without any agitated behavior. Speech: Patient's speech is fluent and nonpressured. Mood/Affect: Mood is depressed, affect is congruent and constricted. Suicidality/Homicidality: Patient denies having any homicidal ideation intent or plan. Patient reports suicidal ideations, passive Perceptions: Patient denies any visual hallucinations and denies any auditory hallucinations Though content/process: There is evidence of non-bizarre delusions of financial stressors, thought process is linear otherwise. Memory and concentration: AOX3, grossly intact for the purposes of this session Judgment and insight: Improving mildly Assessment Depressive disorder due to another medical condition Rule out major depressive disorder, single episode, severe Generalized anxiety disorder Plan: -Patient continues to meet criteria for inpatient psychiatric admission for symptom stabilization and safety. Patient has signed adult voluntary form and medication consent and was placed in patient's chart. -Medications: Start Zoloft 50 mg daily today for depression/anxiety, start Risperdal 0.5 mg at bedtime for delusions and discontinue Seroquel, continue Remeron 30 mg at bedtime for depression/anxiety/sleep -When necessary Zyprexa for agitation/aggression. -Labs: PTH elevated at 86, CT head revealed moderate atrophy related to senescent changes, calcium elevated at 10.6 -SW on board for discharge planning. Encouraged the patient to participate in milieu. Anticipate discharge back home with later this week. Recommend patient to follow-up with director of food and nutrition services upon discharge
[2024-09-02] MEDS: risperiDONE 0.5 MG TAB PO SCH (20:15)
[2024-09-03 11:15] VITALS: RESP 16
--- NOTE | 2024-09-03 11:55 | P.PN ---
Progress Note - Text Progress Note Date: 09/03/24 Interval History: Patient was seen in his room and was directable and agreeable to speak with wr iter in the office. Patient continues to display negative self talk however he was able to identify a different goal for today other than "getting through the day" in which he wrote to walk more. Patient reports being afraid, stating he has no home, food or money to go to once discharged. However he states feeling worse the longer he is here as he is not able to "solve these problems". He has been sleeping better, eating better. Patient continues to not be amenable to cognitive distortions however this was discussed today. He states speaking to his yesterday. Patient reports feeling as though he will soon however at this time patient denies any suicidal or homicidal ideations, intent or plan. Patient denies any auditory, visual hallucinations and denies any paranoia or delusions. Patient denies any side effects from the medications and has been compliant with meds. Mental Status Exam: General Appearance: Patient appears to be stated age is alert, directable, and cooperative. Behavior: Patient is calmly seated without any agitated behavior. Speech: Patient's speech is fluent and nonpressured. Mood/Affect: Mood is depressed, affect is congruent and constricted. Suicidality/Homicidality: Patient denies having any suicidal or homicidal ideation intent or plan. Perceptions: Patient denies any visual hallucinations and denies any auditory hallucinations Though content/process: There is no evidence of any delusional thought content and thought process is linear however illogical discussing his financial stressors. Memory and concentration: AOX3, grossly intact for the purposes of this session Judgment and insight: poor Assessment Depressive disorder due to another medical condition Rule out major depressive disorder, single episode, severe with psychotic features Generalized anxiety disorder Plan: -Patient continues to meet criteria for inpatient psychiatric admission for symptom stabilization and safety. Patient has signed adult voluntary form and medication consent and was placed in patient's chart. -Medications: Increase Risperdal to 0.75 mg at bedtime for delusions, continue Zoloft 50 mg daily for depression/anxiety, mirtazapine 30 mg at bedtime for depression/anxiety/sleep -When necessary Zyprexa for agitation/aggression. -Labs: PTH elevated at 86, calcium elevated at 10.6. aging box hand is working on referral to superintendent pier upon discharge as medical team already recommend endocrine follow-up -SW on board for discharge planning. Encouraged the patient to participate in milieu. Anticipate discharge back home with on
[2024-09-03] MEDS: OLANZapine 5 MG TAB PO PRN (18:17)
[2024-09-03] MEDS: MAG HYDROX/AL HYDROX/SIMETH 355 ML BOTTLE PO PRN (18:55)
[2024-09-03] MEDS: risperiDONE 0.25 MG TAB PO SCH (20:12)
--- NOTE | 2024-09-04 13:12 | P.PN ---
Progress Note - Text Progress Note Date: 09/04/24 Interval History: Patient was seen in his room and was directable and agreeable to speak with wr iter in the room. He continues to express feeling not well, no significant improvements than before. He has been intermittently attending groups and was praised for achieving his goal yesterday of walking more. He mentions speaking to his daughter yesterday. He was A&Ox3. He continues to express a lot of negative perseverations on issues that are nonexistent, expressing many regrets. He reports decreased appetite, stating that he did not eat dinner yesterday and fear of having a BM which has not been an issue previously. Patient was at this time patient denies any suicidal or homicidal ideations, intent or plan. Patient denies any auditory, visual hallucinations and denies any paranoia or delusions. Patient denies any side effects from the medications and has been compliant with meds. Spoke to patient's and provided updates on patient's current presentation and the treatment recommendations including endocrinology and neuropsychology follow-up. All questions answered at this time and states she will pick patient up tomorrow upon discharge. Mental Status Exam: General Appearance: Patient appears to be stated age is alert, directable, and cooperative. Behavior: Patient is calmly seated without any agitated behavior. Speech: Patient's speech is fluent and nonpressured. Mood/Affect: Mood is pessimistic, affect is congruent and constricted. Suicidality/Homicidality: Patient denies having any suicidal or homicidal ideation intent or plan. Perceptions: Patient denies any visual hallucinations and denies any auditory hallucinations Though content/process: There is no evidence of any delusional thought content and thought process is linear, illogical. Memory and concentration: AOX3, grossly intact for the purposes of this session Judgment and insight: Poor Assessment Depressive disorder due to another medical condition Rule out major depressive disorder, single episode, severe Generalized anxiety disorder Plan: -Patient continues to meet criteria for inpatient psychiatric admission for symptom stabilization and safety. Patient has signed adult voluntary form and medication consent and was placed in patient's chart. -Medications: Continue Risperdal 0.75 mg at bedtime as an adjunct, Zoloft 50 mg daily for depression/anxiety, mirtazapine 30 mg at bedtime for depression/anxiety/sleep -When necessary Zyprexa for agitation/aggression. -Labs: PTH elevated at 86, calcium elevated 10.6. CT scan revealed moderate atrophy. -SW on board for discharge planning. Encouraged the patient to participate in milieu. Anticipate discharge back home with tomorrow. Patient has an appointment set up with Dr. Toscano on October 15. Patient would also benefit with neuropsych testing given his presentation.
[2024-09-04 14:49] VITALS: BMI 30.7
[2024-09-05 08:01] VITALS: BP 134/89; PULSE 86; TEMP 98.2
--- NOTE | 2024-09-05 14:25 | P.DS ---
Providers Date of admission: 08/27/24 14:46 Expected date of discharge: 09/05/24 Attending physician: Elba Askew MD Consults: 08/27/24 14:51 Consult Physician Routine Consulting Provider: [facility] Hospitalists Consult Reason/Comments: history and physical Do you want consulting provider notified?: Yes Primary care physician: Papito Luo - Discharge Diagnosis(es) (1) Depressive disorder due to another medical condition with depressive features Status: Acute Priority: High (2) Generalized anxiety disorder Status: Acute Priority: High Hospital Course: Admission HPI: Admission note was completed by story writer "Patient presented to the hospital with psychiatric concerns. Patient reportedly had a loaded gun and had plans to shoot his and himself. EPS note reveals, "Clinician met with Brock and his family in ER 12 for eval. Cl awake laying in bed A/O x4 brought in by family voluntarily due to SI/HI w plan and access. Cl reports on set of severe depression and anxiety that began after the first of the year. Cl reports symptoms have been building up the past few months related to life stressors and excessive worry that things will not be able to be covered if something "happens." Cl's family indicates there are no financial issues or concerns that this time and that all needs are met. Family is confused and concerned where these thoughts are coming from for Gabriele as they have never been to this mag nitude. Cl reports feeling like a burden,hopeless,helpless,disapointed in themselves, a faliure to their family, with low motivation, racing thoughts, loss of interest, low energy, poor focus and concentration. Cl reports these pervasive thoughts have come to a point where they have "no solutions". Cl states " The only relief I have gotten is when I sleep, and there are days I am disapointed that I woke up." Cl's ED visit was prompted by suicidal/homicidal thoughts toward themselves and their . Cl indicates they had a loaded gun and intended on carrying out the plan the day before. Cl's and daughter were not aware of this until Cl was ready to engage in the plan today. Cl's reports cl had a loaded gun and she was able to get them outside away from the gun until their daughter arrived. CL's states she will be removing the gun later today. Cl continued to discuss what appears to be irrational fears of "losing everything." Cl states " thats all I think about, I just roam from room to room and can't turn it off. I feel like my world is collapsing around me and that I am only a burden on them. I can't see a purpose in going on, I can't find a solution that works. Everything I touch gets ruined or people get hurt." Cl's family disagrees with these statements and reassures cl they need help. Cl reports poor appetite and loss of 20lbs the last 60 days. Cl reports trouble engaging in daily activities. Cl becomes tearful at 's overwhelmed emotions. Cl states " I am just breaking you, I am making it worse on you." Cl reports being started on Celexa 10 mg a few days prior by their PCP Dr. Papito Luo. 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 Cl also reports hx of being in the [employer] but does not use VA benefits. 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 Judgement/insight/impulse control : Currently poor. ADLS: poor Sleep: broken Appetite: decreased w sig weight loss. Medical issues: High BP and medication for prostate concerns. Medications: medical meds and Celexa 10 mg daily. Hx of MH tx: none reported. Family indicates cl does not open up about their feelings often. Hx of in pat: Intial, no previous. Hx of ALEXANDRO: none reported BAT: 0.0 / UDS: neg. Hx of in pat rehab: none reported. Fam hx: none reported. Both parents . Father left at age 14, estranged relationship in past. Hx of trauma: no abuse reported. 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 Hx of self harm: none reported. Hx of legal: none reported. Denies ROSAURA/DEL" Patient seen and evaluated on the unit and was agreeable with speaking to story writer in office. He displayed predominate negative thoughts, perseverations on financial stressors. Patient reports ultimately feeling depressed a few months back due to financial stressors. Patient states he never plan for the future and that kota weiss and his has been living [id number], with fears of his house being foreclosed. Patient further states that he may need a new furnace installed in his home which will cost $10-$20,000 and that he is also inferior [place] He feels as though his family is trying to sugarcoat these stressors. He reports he thought he had found a way to end this stress, now however expressing predominant remorse for his actions with a loaded gun. He states "50 years of marriage is down the drain in 2 minutes" and he expressed fears of being institutionalized for the rest of his or in fpc. Patient is not amenable to any alternative thoughts or alternative reasonings related to his cognitive distortions. He states he does not feel as though he will be able to see his family again. He is fixated on being unable to solve his problems as he is usually a solution oriented individual. Patient reports sleep difficulties, poor appetite with weight loss, hopelessness, poor concentration. He reports anxiety that does appear more generalized in nature including racing thoughts. Patient denies any suicidal or homicidal ideations intent or plan. At this time patient denies any auditory or visual hallucinations. Patient denies any flight of ideas racing thoughts and increased in goal directed behavior. Patient admits to using no substances" Hospital course: Upon admission to the unit patient was directable and agreeable to commence treatment and signed adult voluntary form.. Patient got along well with other patients on the unit and followed unit protocol. Patient was compliant with the medications and denied any side effects throughout hospital course. Patient was started on Risperdal and this was increased to 0.75 mg at bedtime as an adjunct, Zoloft 50 mg daily for depression/anxiety, mirtazapine increased to 30 mg at bedtime for depression/anxiety/sleep/appetite. Patient spoke of his stressors and engaged in therapy both group and individual. Patient was also seen by medical team for history and physical exam. Patient did have elevated calcium and parathyroid hormone with CT scan revealing moderate brain atrophy. executive legal secretary was able to set up an appointment with the [facility] next month and patient will follow-up with neuropsychiatry given the atypical nature in his symptoms. Throughout the course of the hospitalization patient continued to exhibit depressive symptoms however did deny suicidal or homicidal ideations with confirming that the firearms have been removed from the home. Patient also denied any auditory or visual hallucinations. The patient denied any access to guns or weapons. Patient denied any paranoia and did not endorse any delusions. Patient does not have a significant history of substance abuse and was counseled on abstaining from all substances including alcohol and marijuana. Patient was also counseled on the medications and need for regular compliance and was encouraged to follow-up with their outpatient appointment for mental health and also for primary care. Prior to discharge a family meeting will be arranged by social science instructor to answer any questions and ensure safety upon discharge including making sure that guns/weapons are either removed from the home or locked away. Mental status exam: General Appearance: Patient appears to be stated age is alert, pleasant, and cooperative. Patient is in no acute distress and has fair hygiene and grooming Behavior: Patient is calmly seated without any agitated behavior. Speech: Patient's speech is fluent and nonpressured. Mood/Affect: Patient reports their mood is "not good", affect is congruent and flat Suicidality/Homicidality: Patient denies having any suicidal or homicidal ideation intent or plan. Perceptions: Patient denies any auditory or visual hallucinations. Though content/process: There is no evidence of any delusional thought content and thought process is linear however illogical. Memory and concentration: AOX3, grossly intact for the purposes of this session. Can spell "WORLD" backwards correctly. Judgment and insight: Chronically poor, however has improved with guarded prognosis Impression: Depressive disorder due to another medical condition Rule out major depressive disorder, single episode, severe Generalized anxiety disorder Plan: -Continue with discharge today as patient has improved and stabilized psychiatrically and is not currently an imminent threat to themself and/or others. -Continue medications: Zoloft 50 mg daily, Risperdal 0.75 mg at bedtime, mirtazapine 30 mg at bedtime -Patient was counseled on the need for medication compliance and appropriate follow-up at mental health and also primary care for medical issues. Patient verbalized understanding and agreed. -Social work to help coordinate patients discharge today arrange for and conduct family meeting to ensure safety upon discharge and answer any questions/concerns. also to ensure safe home environment that guns/weapons are either removed from the home or locked away. Social work also to arrange for patients follow up appointments for psychiatric care along with follow up with primary care provider. -Patient counseled on abstaining from recreational drugs and marijuana and alcohol. Was informed/educated on the adverse effects on their physical and mental health. Patient verbally agreed and understood. -Patient was instructed to return to the hospital or seek immediate medical care if their psychiatric or medical symptoms do worsen or reoccur. Abnormal Labs 08/27/24 08/27/24 08/27/24 09:03 09:03 10:45 WBC Neutrophils # Lymphocytes # 0.6 L Glucose 143 H Calcium 10.3 H Total Bilirubin 2.6 H Unconjugated Bilirubin HDL Cholesterol PTH Intact Urine Ketones Trace H 08/28/24 08/28/24 08/28/24 12:34 12:34 12:34 WBC 10.8 H Neutrophils # 8.6 H Lymphocytes # Glucose 111 H Calcium 10.6 H Total Bilirubin 2.4 H Unconjugated Bilirubin 2.3 H HDL Cholesterol 67.70 H PTH Intact 86.1 H Urine Ketones Vital Signs Temp 98.2 F 09/05/24 08:00 Pulse 86 09/05/24 08:00 Resp 16 09/05/24 08:00 BP 134/89 09/05/24 08:00 Pulse Ox 92 L 09/05/24 08:00 FiO2 Intake & Output 09/04/24 09/05/24 09/05/24 18:59 06:59 18:59 Weight 91.6 kg Allergies Allergy/AdvReac Type Severity Reaction Status Date / Time clarithromycin [From Biaxin] AdvReac Nausea & Verified 08/27/24 09:50 Vomiting, Severe nightmares Patient Condition at Discharge: Fair Plan - Discharge Summary New Discharge Prescriptions: New Losartan [Cozaar] 50 mg PO DAILY 30 Days #30 tab Mirtazapine [Remeron] 30 mg PO HS 30 Days #60 tab risperiDONE [RisperDAL] 0.75 mg PO HS 30 Days #90 tab Sertraline [Zoloft] 50 mg PO DAILY 30 Days #30 tab Continue Finasteride [Proscar] 5 mg PO DAILY 30 Days #30 tab Discontinued Irbesartan 150 mg PO DAILY Citalopram Hydrobromide [CeleXA] 10 mg PO HS Discharge Medication List Finasteride [Proscar] 5 mg PO DAILY 30 Days #30 tab 09/05/24 [Rx] Losartan [Cozaar] 50 mg PO DAILY 30 Days #30 tab 09/05/24 [Rx] Mirtazapine [Remeron] 30 mg PO HS 30 Days #60 tab 09/05/24 [Rx] Sertraline [Zoloft] 50 mg PO DAILY 30 Days #30 tab 09/05/24 [Rx] risperiDONE [RisperDAL] 0.75 mg PO HS 30 Days #90 tab 09/05/24 [Rx] Follow up Appointment(s)/Referral(s): Papito Luo MD [Primary Care Provider] - 1-2 days Wilbur Toscano MD [REFERRING] - 10/15/24 2:30 pm () Juanito Alegre MD [Medical Doctor] - 1 Week (Per office staff. Packet must be faxed for referral Dr Alegre will review packet and office will call patient with appt. ) Jessie Elliott [STAFF PHYSICIAN] - 09/30/24 (09/30 ) Patient Instructions/Handouts: Depression Management for Older Adults (DC) Activity/Diet/Wound Care/Special Instructions: Pt. needs to follow up with [facility] regarding hyperparathyroidism. Please make follow up apt. [facility] Discharge Info Avoid the use of street drugs and alcohol. Take all medications as prescribed. When you are in need of refills on your medications, please contact your outpatient medical provider and/or outpatient psychiatrist. Please go to your scheduled outpatient appointments for aftercare treatment. If symptoms return or become worse, call the crisis line at or and/or visit the nearest emergency room for assistance. National Suicide and Crisis Lifeline - call or text 678 Discharge Disposition: HOME SELF-CARE
== END 2024-09-05 11:36 | disposition home or self-care (01) | DRG 884 ==
LOC: EC 08:37 → 3MHU 14:46
PROVIDERS: ADMIT Psychiatry & Neurology Psychiatry; ATTEND Psychiatry & Neurology Psychiatry
DX: F06.31 Mood disorder due to known physiological condition with depressive features (principal); R45.851 Suicidal ideations; R45.850 Homicidal ideations; G31.9 Degenerative disease of nervous system, unspecified; I10 Essential (primary) hypertension; E21.3 Hyperparathyroidism, unspecified; F41.1 Generalized anxiety disorder; E80.6 Other disorders of bilirubin metabolism; E78.5 Hyperlipidemia, unspecified; G47.9 Sleep disorder, unspecified; Z79.899 Other long term (current) drug therapy; Z59.86 Financial insecurity; Z85.828 Personal history of other malignant neoplasm of skin; Z86.14 Personal history of Methicillin resistant Staphylococcus aureus infection; Z88.1 Allergy status to other antibiotic agents
CPT/HCPCS: 36415; 70450; 80053; 80061; 80306; 81003; 82075; 82248; 83970; 84443; 85025; 87635; 99285

== ENCOUNTER 2024-09-05 20:34 | Observation (INO) | payer MEDICARE ==
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
[2024-09-05 23:21] LABS: Basophils # (A) 0.04 10*3/uL (0.00-0.10); Basophils % (A) 0.4 %; Eosinophils # (A) 0.06 10*3/uL (0.04-0.35); Eosinophils % (A) 0.6 %; HCT 46.6 % (39.6-50.0); HGB 16.8 g/dL (13.0-17.0); Lymphocytes # (A) 1.44 10*3/uL (0.90-5.00); Lymphocytes % (A) 14.5 %; MCH 31.7 pg (27.0-32.0); MCHC 36.1 g/dL (32.0-37.0); MCV 87.9 fL (80.0-97.0); Mean Platelet Volume 10.7 fL (9.5-12.2); Monocytes # (A) 0.99 10*3/uL (0.20-1.00); Neutrophils # (A) 7.37 10*3/uL (1.80-7.70); Neutrophils % (A) 74.1 %; Platelet Count 176 10*3/uL (140-440); RDW 12.5 % (11.5-14.5); WBC 9.94 10*3/uL (4.50-10.00)
[2024-09-05 23:33] LABS: INR 1.1 (<1.2); Partial Thromboplastin Time 22.5 sec (22.0-30.0); Prothrombin Time 12.1 sec (10.0-12.5)
[2024-09-05 23:34] LABS: ALT 30 U/L (4-49); AST 32 U/L (17-59); African American GFR (CKD) >90 (>60 ml/min/1.73 sqM); Albumin 4.5 g/dL (3.5-5.0); Alkaline Phosphatase 67 U/L (38-126); Anion Gap 9 mmol/L; Blood Urea Nitrogen 23 mg/dL (9-20); Calcium 10.9 mg/dL (8.4-10.2); Carbon Dioxide 27 mmol/L (22-30); Chloride 101 mmol/L (98-107); Glucose 115 mg/dL (74-99); Non-African American GFR(CKD) 84 (>60 ml/min/1.73 sqM); Potassium 4.2 mmol/L (3.5-5.1); Sodium 137 mmol/L (137-145); Total Bilirubin 2.4 mg/dL (0.2-1.3); Total Protein 6.9 g/dL (6.3-8.2)
[2024-09-06 00:25] LABS: Appearance,Urine Cloudy (Clear); Bacteria,Urine Rare /hpf; Bilirubin,Urine Negative (Negative); Blood,Urine Negative (Negative); Calcium Oxalate Crystals,Urine Few /hpf; Color,Urine Yellow; Glucose,Urine (UA) Negative (Negative); Hyaline Casts,Urine 14 /lpf (0-2); Ketones,Urine 2+ (Negative); Leukocyte Esterase,Urine Negative (Negative); Mucus,Urine Few /hpf; Nitrite,Urine Negative (Negative); Protein,Urine Trace (Negative); RBC,Urine 2 /hpf (0-5); Specific Gravity,Urine 1.035 (1.001-1.035); Squamous Epithelial Cell,Urine <1 /hpf (0-4); Urobilinogen,Urine <2.0 mg/dL (<2.0); WBC,Urine 1 /hpf (0-5)
[2024-09-06 00:29] LABS: Amphetamine Screen,Urine Not Detected (NotDetected); Barbiturate Screen,Urine Not Detected (NotDetected); Benzodiazepines Screen,Urine Not Detected (NotDetected); Cocaine Screen,Urine Not Detected (NotDetected); Methadone Screen, Urine Not Detected (NotDetected); Opiate Screen,Urine Not Detected (NotDetected); Oxycodone Screen, Urine Not Detected (NotDetected); Phencyclidine Screen,Urine Not Detected (NotDetected); Tricyclic Antidepressant,Urine Not Detected (NotDetected); Urn Cannabinoid Scrn Not Detected (NotDetected)
--- NOTE | 2024-09-06 00:38 | XR ---
EXAM: XR Chest, 2 Views CLINICAL HISTORY: ITS.REASON XR Reason: altered mental status TECHNIQUE: Frontal and lateral views of the chest. COMPARISON: No relevant prior studies available. FINDINGS: Lungs: Unremarkable. No consolidation. Pleural space: Unremarkable. No pneumothorax. Heart: Unremarkable. No cardiomegaly. Mediastinum: Unremarkable. Bones/joints: Unremarkable. Upper abdomen: Elevated RIGHT hemidiaphragm. IMPRESSION: No acute findings in the chest.
[2024-09-06] MEDS: SODIUM CHLORIDE 0.9% 1,000 ML IV ONE (01:07)
[2024-09-06 01:14] LABS: Ionized Calcium 5.1 mg/dL (4.5-5.3)
[2024-09-06 01:26] LABS: Magnesium 2.2 mg/dL (1.6-2.3)
--- NOTE | 2024-09-06 01:59 | US ---
EXAM: US Soft Tissues Head and Neck, Thyroid CLINICAL HISTORY: US Reason: ams TECHNIQUE: Real-time ultrasound scan of the thyroid gland and soft tissues of the neck with image documentation. COMPARISON: No relevant prior studies available. FINDINGS: Left thyroid lobe: The left thyroid lobe measures 4.1 x 2 x 1.3 cm, 5. 9 mL. Smooth oval nodule the left thyroid lobe measuring 4 mm. TR 1. No follow-up is required. Right thyroid lobe: The right thyroid lobe measures 4.5 x 1.3 x 2.1 cm, 6.3 mL. Smooth oval nodule in the right thyroid lobe measuring 6 x 3 mm. TR 1, no follow-up is required. Isthmus: The thyroid isthmus measures 2 mm. No enlarged or calcified nodules. Lymph nodes: Unremarkable. No lymphadenopathy. IMPRESSION: No acute thyroid findings.
[2024-09-06] MEDS ORDERED: NALOXONE 0.4 MG/ML 1 ML VIAL IV PRN (03:01)
[2024-09-06] MEDS: SODIUM CHLORIDE 0.9% 1,000 ML IV SCH (04:01)
[2024-09-06] MEDS: FINASTERIDE 5 MG TAB PO SCH (12:30)
[2024-09-06] MEDS: SERTRALINE 50 MG TAB PO SCH (12:30)
[2024-09-06] MEDS: LOSARTAN 50 MG TAB PO SCH (12:31)
--- NOTE | 2024-09-06 13:12 | P.CNNES ---
History of Present Illness Consult date: 09/06/24 Requesting physician: Mony Mullen Reason for Consult: ams History of Present Illness: This is a 69-year-old gentleman who presents to the emergency department because of altered mental status. Patient's daughters are at bedside who provide the history. They stated over the past 9 days the patient has not been himself and he has been confused just been manic, asking what if questions or scenarios. It initially started with his financial questioning and always concerned about financial risk even though he is financially well off and paid off according to the daughter. He is fixated on things. Certainly admitted to the inpatient psychiatry and he was placed on multiple new psych medications such as Zoloft, Risperdal, Remeron. His condition has not been better and he has not been sleeping. He had episodes of being frantic lasting for 2 hours then afterwards is tired. It seems over the last 2 years he passed a few times lasting for seconds to a minute and unknown cause. He does have a father that has history of epilepsy. Patient has lost 30 pounds over the last 6 weeks of unknown cause and then later family stated that he has not been eating. History of skin cancer but other than that no other history of cancer anywhere else. Some of the workup during this hospital visit consisted of: CBC with differential is unremarkable Chemistry panel sodium, magnesium is within normal limits, calcium is 10.9 and ionized calcium is 5.1 AST and ALT is within normal limits Creatinine is within normal limits Ammonia level is less than 9 UDS is nondetected. Had a recent CT of the head on 08/28/2024 which is negative for any acute bleed or mass effect. Review of Systems As per HPI. Past Medical History Past Medical History: Hypertension Additional Past Medical History / Comment(s): MRSA Left arm 2013 status post I&D 3 in the outpatient setting, MRSA neck 2010 with I&D at Dr. Epperson's office. History of Any Multi-Drug Resistant Organisms: MRSA Date of last positivie culture/infection: 04/18/2014 MDRO Source:: Left Elbow and Left Arm Past Surgical History: No Surgical Hx Reported Additional Past Surgical History / Comment(s): Repair of 3 metatarsal fractures in his foot many years ago. I&D of the neck abscess, I&D and aspiration of the left elbow abscess. Skin cancer removal Past Anesthesia/Blood Transfusion Reactions: No Reported Reaction Past Psychological History: No Psychological Hx Reported Smoking Status: Never smoker Past Alcohol Use History: Occasional Past Drug Use History: None Reported - Past Family History Mother Family Medical History: Osteoarthritis (OA) Medications and Allergies Home Medications Medication Instructions Recorded Confirmed Type Finasteride [Proscar] 5 mg PO DAILY 30 Days #30 tab 09/05/24 09/06/24 Rx Losartan [Cozaar] 50 mg PO DAILY 30 Days #30 tab 09/05/24 09/06/24 Rx Mirtazapine [Remeron] 30 mg PO HS 30 Days #60 tab 09/05/24 09/06/24 Rx Sertraline [Zoloft] 50 mg PO DAILY 30 Days #30 tab 09/05/24 09/06/24 Rx risperiDONE [RisperDAL] 0.75 mg PO HS 30 Days #90 tab 09/05/24 09/06/24 Rx Allergies Allergy/AdvReac Type Severity Reaction Status Date / Time clarithromycin [From Biaxin] AdvReac Nausea & Verified 09/06/24 08:15 Vomiting, Severe nightmares Physical Examination - Vital Signs Vital Signs: Vital Signs Temp Pulse Pulse Resp BP BP Pulse Ox 09/06/24 09:52 98.5 F 100 18 165/89 95 09/06/24 03:44 97.6 F 102 H 17 151/75 09/06/24 03:13 102 H 121/86 94 L 09/06/24 01:07 103 H 18 134/89 94 L 09/05/24 20:57 97.6 F 105 H 18 119/70 96 Intake and Output 09/05/24 09/06/24 09/06/24 22:59 06:59 14:59 Intake Total 540 Balance 540 Intake: Intake, IV Titration 300 Amount Sodium Chloride 0.9% 1, 300 000 ml @ 75 mls/hr IV . [id number] LUL Rx#:[id number] Oral 240 Other: # Voids 2 Weight 93.44 kg 93.44 kg GENERAL: The patient is lying in bed and is not in acute distress. Psych: Flat affect. NEUROLOGICAL: Higher mental function: The patient is mildly drowsy. Is oriented to self, place and time. Is mildly slowly following commands but follows commands appropriately. No aphasia and no neglect. Cranial nerves: The pupils are round, equal and reactive to light and accommodation. Visual fine are full to confrontation throughout. Extraocular movement is intact no nystagmus is noted. Facial sensation is normal to touch throughout. The facial strength is normal throughout. Hearing is normal bilaterally to hand rub. Tongue is midline and moved [id number] without any difficulty. No dysarthria is noted. Shoulder shrug is normal bilaterally. Motor: The strength is 5 over 5 throughout. Normal tone and bulk. Cerebellum: Normal finger to nose bilaterally. Sensation: Sensation is normal to touch throughout. Reflexes (right/left): 2+ throughout. Plantars are mute bilaterally. Results - Laboratory Findings CBC and BMP: 09/05/24 23:13 09/05/24 23:13 Abnormal Lab Findings: Abnormal Labs 09/05/24 09/05/24 23:13 23:28 BUN 23 H Glucose 115 H Calcium 10.9 H Total Bilirubin 2.4 H Urine Protein Trace H Urine Ketones 2+ H Calcium Oxalate Crystal Few H Urine Bacteria Rare H Hyaline Casts 14 H Urine Mucus Few H Assessment and Plan Assessment: This is a 69-year-old gentleman who over the last 9 days he has been manic, fixated on things, confused, not sleeping. He had couple episodes of passing out over the last 2 years of unknown cause. He lost about 30 pounds in 6 weeks. He was recently admitted to the psych jeter and was placed on multiple medication but per family members that has not helped and he is having episodes of frantic episode lasting for 2 hours then just tired after the episode. Does not have a father who has a history of epilepsy. Episode being manic, confused history of passing out I am concerned about epileptic seizure especially with family history of seizure (father). I am concerned about temporal seizure. Patient elevated parathyroid level Plan: I ordered a routine EEG. I ordered MRI of the brain with and without seizure protocol I started the patient on Depakote 500 mg twice daily and not Keppra especially with this his behavioral issues which can make things even worse. With family members regarding the side effects of Depakote. I did not start the patient on Lamictal since it is a very slow titration. Seizure precautions seizure pads I ordered vitamin B12, folate level Will defer the rest of the medical management to primary and other specialist About his weight loss is due to lack of appetite. Rule out any underlying cancer and will defer the workup to the primary team Regarding his elevated parathyroid level will defer the workup to the primary team If patient Depakote does help with his symptoms it appears more seizure then recommend titrating down and eventually stopping his psych medication Will defer the rest of the medical management to primary team. Plan discussed with the patient's daughters were at bedside as well as nurse Thank you for the consultation Dr. Dorado will resume neurology service tomorrow A.M. Time with Patient: Greater than 30
[2024-09-06] MEDS: DIVALPROEX 500 MG TABLET.DR PO SCH (14:09)
[2024-09-06] MEDS: LORazepam 2 MG/ML INJ IV PRN (21:10)
--- NOTE | 2024-09-07 03:27 | EEG ---
ELECTROENCEPHALOGRAM REPORT CLINICAL HISTORY: This is a 69-year-old gentleman with altered mental status. The video EEG is obtained to evaluate for seizure epileptiform activity. RELEVANT MEDICATIONS: 1. Ativan. 2. Zoloft. 3. Risperdal. 4. Depakote. EEG TYPE: This is a routine 21-channel EEG with video using the 10/20 electrode placement system. DESCRIPTION: Wakefulness is only obtained. During awake state, the posterior dominant rhythm consists of [id number] voltage of 10-11 hertz activity that is well modulated and well sustained. There is no physiological stage 2 sleep architecture. There is no focal slowing. Interictal and ictal is none. ACTIVATION PROCEDURE: Photic stimulation did not evoke posterior driving response. There is no abnormality during the photic stimulation. Hyperventilation is not performed. CLINICAL INTERPRETATION: This is a normal routine EEG during awake state. There is no focal slowing, epileptiform discharge, or seizure on the EEG. A normal routine EEG does not rule out underlying epilepsy. Clinical correlation is recommended. MMALEXA / IJN: [id number] /
[2024-09-07 03:54] LABS: Basophils # (A) 0.04 10*3/uL (0.00-0.10); Basophils % (A) 0.5 %; Eosinophils % (A) 2.4 %; HCT 42.7 % (39.6-50.0); HGB 14.7 g/dL (13.0-17.0); Lymphocytes # (A) 1.96 10*3/uL (0.90-5.00); Lymphocytes % (A) 23.9 %; MCH 31.2 pg (27.0-32.0); MCHC 34.4 g/dL (32.0-37.0); MCV 90.7 fL (80.0-97.0); Mean Platelet Volume 11.2 fL (9.5-12.2); Monocytes % (A) 8.5 %; Neutrophils # (A) 5.27 10*3/uL (1.80-7.70); Neutrophils % (A) 64.3 %; Platelet Count 152 10*3/uL (140-440); RBC 4.71 10*6/uL (4.40-5.60); RDW 12.8 % (11.5-14.5)
[2024-09-07 04:19] LABS: African American GFR (CKD) >90 (>60 ml/min/1.73 sqM); Anion Gap 5 mmol/L; Blood Urea Nitrogen 18 mg/dL (9-20); Calcium 10.3 mg/dL (8.4-10.2); Carbon Dioxide 31 mmol/L (22-30); Chloride 102 mmol/L (98-107); Glucose 117 mg/dL (74-99); Non-African American GFR(CKD) >90 (>60 ml/min/1.73 sqM); Potassium 4.2 mmol/L (3.5-5.1); Sodium 138 mmol/L (137-145)
--- NOTE | 2024-09-07 14:37 | P.PN ---
Subjective Progress Note Date: 09/07/24 The patient is a 69-year-old male who was seen in neurologic follow-up on September 07, 2024, in collaboration with Saima Pruitt, via teleneurology. The patient's chart has been reviewed. Per review, the patient was recently an inpatient in the behavioral health unit because of depression, hallucinations and delusions. He was reportedly recently discharged. Since discharge, the patient's symptoms continue. According to the patient this morning, he feels "overwhelmed". The patient's is present at the bedside at the time of the evaluation. She reports that her has been abnormally focused on the fact that there are problems with the gas line in their neighborhood. She reports that he repeatedly talks about the house blowing up, the furnace is stopping and the fact that they will be cold. She says that she is unable to get him off of that subject. In addition to this, the patient reportedly has lost 26 pounds in the last several weeks. He states that he has no appetite. Objective - Vital Signs Vital signs: Vital Signs Temp 98.1 F 09/07/24 07:00 Pulse 81 09/07/24 07:00 Resp 18 09/07/24 07:00 BP 138/80 09/07/24 07:00 Pulse Ox 99 09/07/24 07:00 FiO2 Intake & Output 09/06/24 09/07/24 09/07/24 18:59 06:59 18:59 Intake Total 100 Balance 100 Intake: Oral 100 Other: # Voids 1 - Exam General: The patient is reclined in the bed. He is well-nourished, well- developed and in no acute distress. HEENT: Head is atraumatic, normocephalic. Fundus not visualized. There is no scleral icterus. Mucous membranes are moist. Neurological examination Mental status: Patient is awake, alert and oriented x 3. His speech is clear. There is no dysarthria or aphasia. The patient does begin to tell the story regarding is concerned about the gas line and the house exploding. While I am present in the room, the patient's received a text message stating that the gas line has been fixed. Cranial nerves: 2-12 grossly intact Coordination: [id number] and rapid alternating movements are intact. There is a mild, bilateral, upper extremity intention tremor. - Labs CBC & Chem 7: 09/07/24 02:55 09/07/24 02:55 Labs: Abnormal Lab Results - Last 24 Hours (Table) 09/07/24 Range/Units 02:55 Carbon Dioxide 31 H (22-30) mmol/L Glucose 117 H (74-99) mg/dL Calcium 10.3 H (8.4-10.2) mg/dL Assessment and Plan Assessment: This is a 69-year-old gentleman who over the last 9 days he has been manic, fixated on things, confused, not sleeping. He had couple episodes of passing out over the last 2 years of unknown cause. He lost about 30 pounds in 6 weeks. He was recently admitted to the psych jeter and was placed on multiple medication but per family members that has not helped and he is having episodes of frantic behavior lasting for 2 hours, then just tired after the episode. Does have a father who has a history of epilepsy. 1. Episode being manic, confused, history of passing out-there is concern for epileptic seizure especially with family history of seizure (father). I am concerned about temporal seizure. 2. Patient elevated parathyroid level 3. Mental status changes could perhaps be secondary to paraneoplastic syndrome (limbic encephalitis)-less likely Plan: 1. Routine EEG. 2. MRI of the brain with and without seizure protocol 3. Started the patient on Depakote 500 mg twice daily and not Keppra especially with this his behavioral issues which can make things even worse. 4. Seizure precautions seizure pads 5. Will check vitamin B12, folate level 6. Will defer the rest of the medical management to primary and other specialist 7. About his weight loss is due to lack of appetite. Rule out any underlying cancer and will defer the workup to the primary team 8. Regarding his elevated parathyroid level will defer the workup to the primary team 9. If patient Depakote does help with his symptoms it appears more seizure then recommend titrating down and eventually stopping his psych medication 10. Will defer the rest of the medical management to primary team. 11. Psychiatry consultation placed Time with Patient: Greater than 30 (40 minutes were spent caring for this patient today including, obtaining history, examining the patient, reviewing imaging, chart documentation, labs, placing orders and creating this note)
--- NOTE | 2024-09-07 15:58 | MR ---
EXAMINATION TYPE: MR brain wo/w con DATE OF EXAM: 09/07/2024 3:49 PM COMPARISON: None available. CLINICAL INDICATION: Male, 69 years old with history of confusion/ seizure protocol; PHH, Confusion, evaluate for seizure. TECHNIQUE: Multi planar, multi sequence imaging was performed through the brain including: T1, T2, In version recovery, susceptibility weighted imaging and gradient echo imaging and Diffusion weighted im aging. The patient was then given intravenous contrast and multi planar, T1 fat-saturation images wer e obtained. IV Contrast: 9 mL Gadobutrol FINDINGS: Basal cisterns are patent. Patchy periventricular and subcortical white matter T2 hyperintense foci c ompatible with moderate chronic microvascular ischemic disease. Ventricles and sulci moderately promi nent bilateral generalized volume loss. Diffusion-weighted imaging shows no evidence of restricted di ffusion to suggest acute/subacute infarct. Intracranial arterial flow voids are maintained. Midline s tructures show no abnormality. The susceptibility weighted images do not reveal any evidence for micr o-hemorrhage. After administration of gadolinium, no abnormal enhancement is seen. The bone marrow signal is within normal limits. Paranasal sinuses and mastoid air cells: No significant paranasal sinus disease. Visualized orbits: Orbital contents are intact. IMPRESSION: 1. No evidence of intracranial mass, acute/subacute infarct, or abnormal enhancement. 2. Moderate chronic microvascular ischemic disease. [facility], , 09/07/2024 3:55 PM
--- NOTE | 2024-09-07 16:51 | P.HPIM ---
History of Present Illness H&P Date: 09/06/24 Chief Complaint: Altered mental status 69-year-old male presents to the emergency department for evaluation of altered mental status. The symptoms have been going on for around 9 days. The patient's daughter states that he woke up 9 days ago and was very unlike himself and has been like this ever since. His family states that he was just released from the mental health unit today. He had an episode where he was extremely agitated and they were unable to calm him down at home. Patient has fear that his house is going to burn down due to the gas line by their house. This evening, he would not take his medications. Patient was evaluated by the medical team while he was admitted and parathyroid hormone was found to be elevated. He was advised to have an ultrasound done which he is scheduled for tomorrow. Family is concerned as they are having difficulty caring for him at home. They are unable to stay home with him full-time while awaiting outpatient follow-up and are concerned about his safety. Blood work completed in ED reveals WBC of 9.9, hemoglobin 16.8 and platelet count of 176, sodium 137, potassium 4.2, BUN of 23 with creatinine 0.92, calcium elevated at 10.9, total bilirubin of 2.4, ammonia less than 9 UA reveals rare bacteria with trace protein Patient had CT of the head completed on 08/28/2024 which did not reveal any acute intracranial abnormality Review of Systems ROS unobtainable: due to mental status Past Medical History Past Medical History: Hypertension Additional Past Medical History / Comment(s): MRSA Left arm 2013 status post I&D 3 in the outpatient setting, MRSA neck 2010 with I&D at Dr. Epperson's office. History of Any Multi-Drug Resistant Organisms: MRSA Date of last positivie culture/infection: 04/18/2014 MDRO Source:: Left Elbow and Left Arm Past Surgical History: No Surgical Hx Reported Additional Past Surgical History / Comment(s): Repair of 3 metatarsal fractures in his foot many years ago. I&D of the neck abscess, I&D and aspiration of the left elbow abscess. Skin cancer removal Past Anesthesia/Blood Transfusion Reactions: No Reported Reaction Past Psychological History: No Psychological Hx Reported Smoking Status: Never smoker Past Alcohol Use History: Occasional Past Drug Use History: None Reported - Past Family History Mother Family Medical History: Osteoarthritis (OA) Medications and Allergies Home Medications Medication Instructions Recorded Confirmed Type Finasteride [Proscar] 5 mg PO DAILY 30 Days #30 tab 09/05/24 09/06/24 Rx Losartan [Cozaar] 50 mg PO DAILY 30 Days #30 tab 09/05/24 09/06/24 Rx Mirtazapine [Remeron] 30 mg PO HS 30 Days #60 tab 09/05/24 09/06/24 Rx Sertraline [Zoloft] 50 mg PO DAILY 30 Days #30 tab 09/05/24 09/06/24 Rx risperiDONE [RisperDAL] 0.75 mg PO HS 30 Days #90 tab 09/05/24 09/06/24 Rx Allergies Allergy/AdvReac Type Severity Reaction Status Date / Time clarithromycin [From Biaxin] AdvReac Nausea & Verified 09/06/24 08:15 Vomiting, Severe nightmares Physical Exam Vitals: Vital Signs Temp Pulse Pulse Resp BP BP Pulse Ox 09/06/24 09:52 98.5 F 100 18 165/89 95 09/06/24 03:44 97.6 F 102 H 17 151/75 09/06/24 03:13 102 H 121/86 94 L 09/06/24 01:07 103 H 18 134/89 94 L 09/05/24 20:57 97.6 F 105 H 18 119/70 96 Intake and Output 09/05/24 09/06/24 09/06/24 22:59 06:59 14:59 Intake Total 540 Balance 540 Intake: Intake, IV Titration 300 Amount Sodium Chloride 0.9% 1, 300 000 ml @ 75 mls/hr IV . [id number] PENDING SALE TO [facility] Rx#:[id number] Oral 240 Other: # Voids 2 Weight 93.44 kg 93.44 kg General appearance: alert, other (Agitated) Head exam: Present: atraumatic, normocephalic, normal inspection Eye exam: Present: normal appearance, PERRL, EOMI. Absent: scleral icterus, conjunctival injection, periorbital swelling ENT exam: Present: normal exam, mucous membranes moist Neck exam: Present: normal inspection. Absent: tenderness, meningismus, lym phadenopathy Respiratory exam: Present: normal lung sounds bilaterally. Absent: respiratory distress, wheezes, rales, rhonchi, stridor Cardiovascular Exam: Present: regular rate, normal rhythm, normal heart sounds. Absent: systolic murmur, diastolic murmur, rubs, gallop, clicks GI/Abdominal exam: Present: soft, normal bowel sounds. Absent: distended, tenderness, guarding, rebound, rigid Extremities exam: Present: normal inspection, full ROM, normal capillary refill. Absent: tenderness, pedal edema, joint swelling, calf tenderness Neurological exam: Present: alert, oriented X3 Psychiatric exam: Present: agitated Skin exam: Present: warm, dry, intact, normal color. Absent: rash Results CBC & Chem 7: 09/07/24 02:55 09/07/24 02:55 Labs: Abnormal Lab Results - Last 24 Hours (Table) 09/05/24 09/05/24 Range/Units 23:13 23:28 BUN 23 H (9-20) mg/dL Glucose 115 H (74-99) mg/dL Calcium 10.9 H (8.4-10.2) mg/dL Total Bilirubin 2.4 H (0.2-1.3) mg/dL Urine Protein Trace H (Negative) Urine Ketones 2+ H (Negative) Calcium Oxalate Crystal Few H (None) /hpf Urine Bacteria Rare H (None) /hpf Hyaline Casts 14 H (0-2) /lpf Urine Mucus Few H (None) /hpf Thrombosis Risk Factor Assmnt - Choose All That Apply Any of the Below Risk Factors Present?: Yes Each Factor Represents 1 point: Obesity (BMI >25) Other Risk Factors: Yes Each Risk Factor Represents 2 Points: Age 61-74 years Other congenital or acquired thrombophilia - If yes, enter type in comment: No Thrombosis Risk Factor Assessment Total Risk Factor Score: 3 Thrombosis Risk Factor Assessment Level: Moderate Risk Assessment and Plan Assessment: 1. Altered mental status -Blood work completed in ED is unremarkable - CT of the head completed on 08/28/2024 was negative for any acute intracranial abnormality - Patient has been evaluated by a neurology and is recommended routine EEG and MRI of the brain; vitamin B12 and folic acid level; TSH - Patient has been placed on Depakote 500 mg twice daily per neurology recommendation; neurology not recommending Keppra given behavioral issues. Patient is not recommended to be placed on Lamictal given slow titration - Seizure precautions in place 2. Hypercalcemia; calcium was elevated at 10.9 with ionized calcium level of 5.1 which is within normal limit possibly related to dehydration - Will order parathyroid levels; repeat calcium level; will order ultrasound parathyroid glands; patient will need referral for endocrinology 3. Hyperbilirubinemia; total bilirubin elevated at 2.4; AST/ALT remain within normal limit - We will monitor liver enzymes 4. Hypertension; Cozaar 50 mg daily 5. Depression with behavior/insomnia; patient is currently on Risperdal 0.75 mg nightly will be placed on hold given mental status change; hold on Remeron 15 mg nightly; patient remains on Zoloft 50 mg daily DVT prophylaxis; SCDs CODE STATUS; full code
--- NOTE | 2024-09-07 16:58 | P.PN ---
Subjective Progress Note Date: 09/07/24 69-year-old male presents to the emergency department for evaluation of altered mental status. The symptoms have been going on for around 9 days. The patient's daughter states that he woke up 9 days ago and was very unlike himself and has been like this ever since. His family states that he was just released from the mental health unit today. He had an episode where he was extremely agitated and they were unable to calm him down at home. Patient has fear that his house is going to burn down due to the gas line by their house. This evening, he would not take his medications. Patient was evaluated by the medical team while he was admitted and parathyroid hormone was found to be elevated. He was advised to have an ultrasound done which he is scheduled for tomorrow. Family is concerned as they are having difficulty caring for him at home. They are unable to stay home with him full-time while awaiting outpatient follow-up and are concerned about his safety. Blood work completed in ED reveals WBC of 9.9, hemoglobin 16.8 and platelet count of 176, sodium 137, potassium 4.2, BUN of 23 with creatinine 0.92, calcium elevated at 10.9, total bilirubin of 2.4, ammonia less than 9 UA reveals rare bacteria with trace protein Patient had CT of the head completed on 08/28/2024 which did not reveal any acute intracranial abnormality --EEG is negative for seizure activity - MRI of the brain is ordered and pending - Calcium level remains elevated; will order parathyroid levels - Repeat liver enzymes Objective - Vital Signs Vital signs: Vital Signs Temp 98.1 F 09/07/24 07:00 Pulse 81 09/07/24 07:00 Resp 18 09/07/24 07:00 BP 138/80 09/07/24 07:00 Pulse Ox 99 09/07/24 07:00 FiO2 Intake & Output 09/06/24 09/07/24 09/07/24 18:59 06:59 18:59 Intake Total 100 Balance 100 Intake: Oral 100 Other: # Voids 1 - Exam General appearance: alert, other (Agitated) Head exam: Present: atraumatic, normocephalic, normal inspection Eye exam: Present: normal appearance, PERRL, EOMI. Absent: scleral icterus, conjunctival injection, periorbital swelling ENT exam: Present: normal exam, mucous membranes moist Neck exam: Present: normal inspection. Absent: tenderness, meningismus, lymphadenopathy Respiratory exam: Present: normal lung sounds bilaterally. Absent: respiratory distress, wheezes, rales, rhonchi, stridor Cardiovascular Exam: Present: regular rate, normal rhythm, normal heart sounds. Absent: systolic murmur, diastolic murmur, rubs, gallop, clicks GI/Abdominal exam: Present: soft, normal bowel sounds. Absent: distended, tenderness, guarding, rebound, rigid Extremities exam: Present: normal inspection, full ROM, normal capillary refill. Absent: tenderness, pedal edema, joint swelling, calf tenderness Neurological exam: Present: alert, oriented X3 Psychiatric exam: Present: agitated Skin exam: Present: warm, dry, intact, normal color. Absent: rash - Labs CBC & Chem 7: 09/07/24 02:55 09/07/24 02:55 Labs: Abnormal Lab Results - Last 24 Hours (Table) 09/07/24 Range/Units 02:55 Carbon Dioxide 31 H (22-30) mmol/L Glucose 117 H (74-99) mg/dL Calcium 10.3 H (8.4-10.2) mg/dL Assessment and Plan Assessment: 1. Altered mental status -Blood work completed in ED is unremarkable - CT of the head completed on 08/28/2024 was negative for any acute intracranial abnormality - Patient has been evaluated by a neurology and is recommended routine EEG and MRI of the brain; vitamin B12 and folic acid level; TSH - Patient has been placed on Depakote 500 mg twice daily per neurology recommendation; neurology not recommending Keppra given behavioral issues. Patient is not recommended to be placed on Lamictal given slow titration - Seizure precautions in place 2. Hypercalcemia; calcium was elevated at 10.9 with ionized calcium level of 5.1 which is within normal limit possibly related to dehydration - Will order parathyroid levels; repeat calcium level; will order ultrasound parathyroid glands; patient will need referral for endocrinology 3. Hyperbilirubinemia; total bilirubin elevated at 2.4; AST/ALT remain within normal limit - We will monitor liver enzymes 4. Hypertension; Cozaar 50 mg daily 5. Depression with behavior/insomnia; patient is currently on Risperdal 0.75 mg nightly will be placed on hold given mental status change; hold on Remeron 15 mg nightly; patient remains on Zoloft 50 mg daily DVT prophylaxis; SCDs CODE STATUS; full code
--- NOTE | 2024-09-07 16:59 | P.CN ---
Psychiatric Consult - . Consult date: 09/07/24 Consult:: Dictation was produced using Oink dictation software. Please excuse any grammatical, word or spelling errors. 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 REASON FOR REFERRAL: Psychiatry was consulted for delusions. HISTORY OF PRESENT ILLNESS: The patient presented to the hospital for evaluation of altered mental status, which has been going on for 9 days prior to this hospitalization, he has a reported history of recent mental health hospitalization and was released recently, had an episode of agitation and they were not able to calm him down at home. Reported that he has fear that his house is going to burn down due to the gas line. Family is concerned about having difficulty caring for him at home. Patient daughter reported that during his recent inpatient psych admission he was placed on Zoloft, risperidone and Remeron, family reported that it has not been helping and he has been having episodes of frantic episode lasting 2 hours then he is tired. Reported that he lost 30 pounds over the last 6 weeks of unknown reason and he has not been eating. He has a history of skin cancer. Patient was seen by neurology and was started on Depakote 500 mg p.o. twice daily. His parathyroid hormone was elevated, thyroid ultrasound scheduled for today. Upon assessment today the patient was sitting on the chair, eating his meals, daughter is at bedside. The patient states that he was recently discharged from the inpatient psychiatry unit last , reported that he went home and he was paranoid about the gas line and reported that he was just thinking about it all day long and felt overwhelmed, reported that his daughter had to bring him back to the hospital. States that his daughter was able to get in contact with the gas company and th checked the house and reported it is safe and they are not concerned about any gas leak. States that he lives with his and has really good support from his 2 daughters. He denied any current suicidal, self-harm or homicidal thoughts or behavior, reported depression to be at the low side, reported improvement in sleep and appetite since medication was changed, admitted to mild to moderate anxiety due to financial issues and if he had to change the furnace and the gas pipes. Denied any manic or hypomanic symptoms, denied any auditory or visual hallucination, paranoia or delusion. States that he feels relief after his daughter had the gas company checked the house. States that since his medication changed to Depakote he has been feeling much better. States that he was not feeling that great was risperidone. He denied any substance use. PAST PSYCHIATRIC HISTORY: - Inpatient Hospitalizations: 1 previous hospitalization at [facility]/05/2024 - Outpatient Care: Reported that he has outpatient appointment scheduled, patient was encouraged to keep his outpatient psychiatrist and therapist appointments - Current Psychotropics: Zoloft 50 mg, Depakote 500 mg p.o. twice daily, started in the hospital - Prior Psychotropics/Therapy: Celexa 10 mg, Zoloft 50 mg, risperidone 0.75 mg hs, Remeron 30 mg p.o. at bedtime - Prior Psychiatric diagnosis: Depressive disorder, anxiety disorder - Suicidal Attempts: Denies PAST MEDICAL HISTORY: Past Medical History: Hypertension Additional Past Medical History / Comment(s): MRSA Left arm 2013 status post I&D 3 in the outpatient setting, MRSA neck 2010 with I&D at Dr. Epperson's office. History of Any Multi-Drug Resistant Organisms: MRSA Date of last positivie culture/infection: 04/18/2014 MDRO Source:: Left Elbow and Left Arm Past Surgical History: No Surgical Hx Reported Additional Past Surgical History / Comment(s): Repair of 3 metatarsal fractures in his foot many years ago. I&D of the neck abscess, I&D and aspiration of the left elbow abscess. Skin cancer removal Past Anesthesia/Blood Transfusion Reactions: No Reported Reaction Past Psychological History: No Psychological Hx Reported Smoking Status: Never smoker Past Alcohol Use History: Occasional Past Drug Use History: None Reported ALLERGIES: as per EMR. CHEMICAL DEPENDENCY HISTORY: as per HPI. FAMILY PSYCHIATRIC/SUBSTANCE USE HISTORY: He states his grandson has depression SOCIAL HISTORY: Patient is and has 2 daughters. 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 MENTAL STATUS EXAM: General Appearance: Patient appears to be stated age is alert, pleasant, and cooperative. Patient appears to have fair hygiene and grooming wearing hospital gown with fair eye contact. Patient was eating during the interview, daughter at bedside. Behavior: Patient is calmly sitting in a chair without any agitated behavior, calm, cooperative, pleasant Speech: Patient's speech is fluent and nonpressured. Mood/Affect: Patient reports their mood is "getting better", affect is congruent Suicidality/Homicidality: Patient denies having any suicidal or homicidal ideation intent or plan. Perceptions: Patient denies any visual hallucinations and denies any auditory hallucinations Though content/process: There is no evidence of any delusional thought content and thought process is linear and goal-directed. Memory and concentration: AOX3, grossly intact for the purposes of this session. 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. The patient was sitting in the chair, his daughter at bedside, history was retrieved from the patient mainly and his daughter at times. Patient was oriented to time, place, and person and to the situation. He was able to express his feelings and anxiety about the gas pipes and reported that he was just discharged from the inpatient psychiatric unit last and when he went back home he was anxious again about the pipeline and how much it would cost him to fix, that is when his family decided to bring him back to be assessed. Reported relief after his family was able to get the [employer] to assess the house and it was cleared. Reported improvement in sleep and appetite. Denied any current suicidal, self-harm or homicidal thoughts or behavior, denied any auditory or visual hallucination, reported mild depression and anxiety. Patient has good support system around him, been for 50+ years. Medication was recently changed by the neurology team, we recommend to continue his current medication which include Depakote 500 mg p.o. twice daily, and Zoloft 50 mg p.o. daily. Patient reported that he was not feeling well when he was on risperidone. We recommend to follow-up outpatient with outpatient psychiatrist and therapist. Psychoeducation was provided, risk, benefit and side effect discussed, patient was reminded to follow-up on Depakote level. Brief psychotherapy was provided, patient was educated on breathing techniques. At this time he does not meet criteria for inpatient hospitalization. The patient and his daughter agreed to follow-up with psychiatry on outpatient basis. IMPRESSIONS: -Generalized anxiety disorder -Depressive disorder due to another medical condition, rule out MDD -History of altered mental status, improved PLAN: -At this time patient DOES NOT meet criteria for inpatient psychiatric admission. -Delirium precautions recommended with patient including - avoiding use of narcotics and PATENT LEGAL ASSISTANT sedatives, limit anticholinergic medications when possible, frequent re-orientation, minimize use of restraints, open window shades during the day and close them at night -Would recommend to continue with his current medication Depakote 500 mg p.o. twice daily, and Zoloft 50 mg p.o. 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 09/07/24 15:32
[2024-09-07 19:56] VITALS: RESP 16
[2024-09-08] MEDS: LORazepam 0.5 MG TAB PO PRN (00:23)
[2024-09-08 03:40] LABS: Ionized Calcium 5.2 mg/dL (4.5-5.3)
[2024-09-08 03:56] LABS: ALT 25 U/L (4-49); AST 33 U/L (17-59); African American GFR (CKD) >90 (>60 ml/min/1.73 sqM); Albumin 3.2 g/dL (3.5-5.0); Alkaline Phosphatase 61 U/L (38-126); Anion Gap 4 mmol/L; Bilirubin,Unconjugated 0.9 mg/dL (0.0-1.1); Blood Urea Nitrogen 16 mg/dL (9-20); Calcium 9.6 mg/dL (8.4-10.2); Carbon Dioxide 28 mmol/L (22-30); Chloride 104 mmol/L (98-107); Glucose 99 mg/dL (74-99); Non-African American GFR(CKD) 89 (>60 ml/min/1.73 sqM); Potassium 4.4 mmol/L (3.5-5.1); Sodium 136 mmol/L (137-145); Total Bilirubin 0.9 mg/dL (0.2-1.3); Total Protein 5.2 g/dL (6.3-8.2)
[2024-09-08 06:17] VITALS: PULSE 95
[2024-09-08 10:18] VITALS: BP 146/87; TEMP 98
--- NOTE | 2024-09-08 12:25 | P.PN ---
Subjective Progress Note Date: 09/08/24 The patient is a 69-year-old male who was seen in neurologic follow-up on September 07, 2024, in collaboration with Saima Pruitt, via teleneurology. The patient's chart has been reviewed. Per review, the patient was recently an inpatient in the behavioral health unit because of depression, hallucinations and delusions. He was reportedly recently discharged. Since discharge, the patient's symptoms continue. According to the patient this morning, he feels "overwhelmed". The patient's is present at the bedside at the time of the evaluation. She reports that her has been abnormally focused on the fact that there are problems with the gas line in their neighborhood. She reports that he repeatedly talks about the house blowing up, the furnace is stopping and the fact that they will be cold. She says that she is unable to get him off of that subject. In addition to this, the patient reportedly has lost 26 pounds in the last several weeks. He states that he has no appetite. The patient is seen in neurologic follow-up on September 08, 2024, in collaboration with Saima Pruitt, via teleneurology. Psychiatry has seen the patient. Appreciate their input. They recommend contin uation of Depakote 500 mg twice daily. MRI of the brain has been completed. There is reported moderate, ischemic white matter. I have personally viewed these images and agree with the radiology repo rt. At the time of today's evaluation, the patient is seated in the chair. There are several family members at the bedside. He reportedly had a rough night. Did not get much sleep. He was awakened numerous times. He reports that he is not doing well, because of that. Objective - Vital Signs Vital signs: Vital Signs Temp 98 F 09/08/24 08:00 Pulse 95 09/08/24 08:00 Resp 16 09/08/24 08:00 BP 146/87 09/08/24 08:00 Pulse Ox 96 09/08/24 08:00 FiO2 Intake & Output 09/07/24 09/08/24 09/08/24 18:59 06:59 18:59 Intake Total 225 Balance 225 Intake: Intake, IV Titration 225 Amount Sodium Chloride 0.9% 1, 225 000 ml @ 75 mls/hr IV . [id number] [facility] Rx#:[id number] Other: # Voids 2 3 2 - Exam General: The patient is seated in the bedside chair. He is well-nourished, well-developed and in no acute distress. HEENT: Head is atraumatic, normocephalic. Fundus not visualized. There is no scleral icterus. Mucous membranes are moist. Neurological examination Mental status: Patient is awake, alert and oriented x 3. His speech is clear. There is no dysarthria or aphasia. Cranial nerves: 2-12 grossly intact - Labs CBC & Chem 7: 09/07/24 02:55 09/08/24 02:47 Labs: Abnormal Lab Results - Last 24 Hours (Table) 09/08/24 Range/Units 02:47 Sodium 136 L (137-145) mmol/L Total Protein 5.2 L (6.3-8.2) g/dL Albumin 3.2 L (3.5-5.0) g/dL Assessment and Plan Assessment: This is a 69-year-old gentleman who over the last 9 days he has been manic, fixated on things, confused, not sleeping. He had couple episodes of passing out over the last 2 years of unknown cause. He lost about 30 pounds in 6 weeks. He was recently admitted to the psych jeter and was placed on multiple medication but per family members that has not helped and he is having episodes of frantic behavior lasting for 2 hours, then just tired after the episode. Does have a father who has a history of epilepsy. 1. Episode being manic, confused, history of passing out-there is concern for epileptic seizure especially with family history of seizure (father). I am concerned about temporal seizure. 2. Patient elevated parathyroid level 3. Mental status changes could perhaps be secondary to paraneoplastic syndrome (limbic encephalitis)-less likely 4. Generalized anxiety disorder, per psychiatry Plan: 1. Routine EEG. 2. MRI of the brain with and without seizure protocol 3. Started the patient on Depakote 500 mg twice daily and not Keppra especially with this his behavioral issues which can make things even worse. 4. Neurology is in agreement with discharge. The patient should follow-up with his family doctor as well as psychiatry follow-up Time with Patient: Less than 30 (25 minutes were spent caring for this patient today including, obtaining an interim history, reviewing imaging, chart documentation and creating this note)
== END 2024-09-08 12:48 | disposition home or self-care (01) ==
LOC: EC 20:34 → 1SOBS 09-06 03:04
PROVIDERS: ADMIT Hospitalist; ATTEND Hospitalist
DX: R41.82 Altered mental status, unspecified (principal); E83.52 Hypercalcemia; R17 Unspecified jaundice; F41.1 Generalized anxiety disorder; F32.A Depression, unspecified; I10 Essential (primary) hypertension; G47.00 Insomnia, unspecified; Z79.899 Other long term (current) drug therapy; Z85.828 Personal history of other malignant neoplasm of skin; Z82.0 Family history of epilepsy and other diseases of the nervous system; Z88.1 Allergy status to other antibiotic agents
CPT/HCPCS: 96374; 96376; 99285; 36415 ×2; 94760; 95816; 93005; 80053; 80048 ×2; 80076; 84443; 82330 ×2; 82607 ×2; 82140 ×2; 82746; 83735; 85025 ×2; 85610; 85730; 81001; 80306; 83970; 71046; 76536; 70553; G0378 ×3; S0138 ×3; J2060 ×2; A9585

== ENCOUNTER → 2024-10-10 | Outpatient (CLI) | payer MEDICARE ==
--- NOTE | 2024-10-10 14:43 | NM ---
EXAMINATION TYPE: NM parathyroid w/spect DATE OF EXAM: 10/10/2024 COMPARISON: NONE CLINICAL INDICATION: Male, 69 years old with history of E21.0 PRIMARY HYPERPARATHYROIDISM; TECHNIQUE: Following administration of 25.4 mCi Tc99m Sestamibi. Anterior projection images of the neck and ches t were obtained 10 minutes and 3 hours post injection. SPECT images of the neck and chest were obtai tomeka and reconstructed in three axes. FINDINGS: Thyroid tracer washout: Delayed images demonstrate near-complete tracer washout from the thyroid. Parathyroid uptake: None. The two-hour delayed images do not demonstrate any focal abnormal persisten t uptake in the region of the parathyroid glands to suggest parathyroid adenoma. Normal uptake: There is physiological tracer uptake in the myocardium, liver, salivary glands, and th yroid gland. IMPRESSION: Normal parathyroid imaging study. No evidence for mediastinal uptake to suggest mediastinal parathyro id adenoma [facility], , 10/10/2024 2:41 PM
== END | disposition home or self-care (01) ==
LOC: RADBDWWP 07:34
PROVIDERS: ATTEND Internal Medicine Endocrinology, Diabetes & Metabolism
DX: E21.0 Primary hyperparathyroidism (principal)
CPT/HCPCS: 78071; A9500